=== PATIENT | female | born 1950 | race Caucasian/White ===

== ENCOUNTER 2020-09-25 07:34 | Outpatient (REF) | payer OTHER, SELFPAY ==
[2020-09-25 08:28] LABS: MANUAL DIFF FLAG NO
[2020-09-25 08:31] LABS: Basophils Percent Auto 0.5 % (0-2); Eosinophils Percent Auto 0.5 % (0-4); Hemoglobin 10.9 g/dl (12.0-16.0); Imm Gran Abs Auto 0.02 X10*3/uL (0.00-0.03); Imm Gran Pct Auto 0.4 % (0.0-0.4); Lymphocytes Absolute Auto 1.4 X10*3/uL (1.2-4.9); Lymphocytes Percent Auto 24.9 % (20-40); Mean Corpuscular HGB Conc 32.1 g/dl (31.0-35.0); Mean Corpuscular Hemoglobin 28.4 pg (27.0-33.0); Mean Corpuscular Volume 88.5 fL (80-98); Mean Platelet Volume 10.1 fL (9.4-12.3); Monocytes Absolute Auto 0.5 X10*3/uL (0.1-1.2); Monocytes Percent Auto 8.8 % (2-11); Neutrophils Absolute Auto 3.7 X10*3/uL (2.0-8.3); Neutrophils Percent Auto 64.9 % (45-73); Platelet Count 259 X10*3/uL (160-400); Red Blood Count 3.84 X10*6/uL (4.20-5.50); Red Cell Distribution Width 14.8 % (11.0-16.0); White Blood Count 5.7 X10*3/uL (4.8-10.8)
[2020-09-25 09:05] LABS: Glucose Urine UA NEG (NEG); Leukocyte Esterase Urine NEG (NEG); Nitrite Urine NEG (NEG); PH 5.5 (5.0-8.0); Specific Gravity - Urine 1.025 (1.005-1.025); Urine Blood NEG (NEG); Urine Ketones NEG (NEG); Urine Protein NEG (NEG-TRACE)
[2020-09-25 09:06] LABS: Appearance Urine CLEAR; Color Urine YELLOW
[2020-09-25 09:34] LABS: Alanine Aminotransferase 15 U/L (0-31); Albumin Level 3.6 g/dL (3.5-5.0); Alkaline Phosphatase 85 U/L (39-117); Anion Gap 14 (12-20); Aspartate Amino Transferase 20 U/L (5-31); Bilirubin Total 0.5 mg/dL (0.0-1.0); Blood Urea Nitrogen 31 mg/dL (9-16); Calcium 8.1 mg/dL (8.4-10.2); Carbon Dioxide 23 mmol/L (22-29); Chloride 108 mmol/L (96-108); Cholesterol 150 mg/dL; Estimated Glomerular Filt Rate > 60; Glucose Fasting 89 mg/dL (60-99); HDL Cholesterol 63 mg/dL; LDL Cholesterol Calculated 75 mg/dl; Potassium 4.6 mmol/l (3.3-5.1); Sodium 140 mmol/L (135-145); Total Protein 5.9 g/dL (6.5-8.0); Triglycerides 63 mg/dL
[2020-09-25 09:45] LABS: Vitamin D 25-OH Total 36.7 ng/mL (>30)
== END 2020-09-25 07:35 | disposition home or self-care (01) ==
LOC: HO.LAB 07:34
PROVIDERS: Visit Provider Internal Medicine
DX: Z00.00 Encounter for general adult medical examination without abnormal findings (principal); I10 Essential (primary) hypertension; R79.9 Abnormal finding of blood chemistry, unspecified; I89.0 Lymphedema, not elsewhere classified; E55.9 Vitamin D deficiency, unspecified; E66.01 Morbid (severe) obesity due to excess calories; N95.8 Other specified menopausal and perimenopausal disorders; I70.0 Atherosclerosis of aorta
CPT/HCPCS: 36415; 80053; 80061; 81003; 82306; 85025

== ENCOUNTER 2020-10-25 13:23 | Outpatient (REF) | payer OTHER, SELFPAY ==
[2020-10-25 16:57] LABS: Blood Urea Nitrogen 23 mg/dL (9-16); Estimated Glomerular Filt Rate > 60
== END 2020-10-25 13:24 | disposition home or self-care (01) ==
LOC: HO.HMGCLDS 13:23
PROVIDERS: PCP Internal Medicine; Visit Provider Internal Medicine
DX: R79.9 Abnormal finding of blood chemistry, unspecified (principal)
CPT/HCPCS: 36415; 82565; 84520

== ENCOUNTER → 2020-12-27 10:06 | Outpatient (BNVA) | payer OTHER, SELFPAY | PROVIDERS: PCP Internal Medicine; Visit Provider Internal Medicine Gastroenterology ==

== ENCOUNTER 2021-02-21 07:21 | Outpatient (REF) | payer OTHER, SELFPAY ==
--- NOTE | ~2021-02-21 | MM_ITS ---
EXAMINATION: MM SCREENING DIGITAL BREAST TOMOSYNTHESIS, BILATERAL CLINICAL INFORMATION: Screening. Asymptomatic. The lifetime risk of breast cancer based on the Tyrer-Cuzick Model is 4%. COMPARISON: Mammography: 12/15/2019, 12/11/2017, 06/10/2016 TECHNIQUE: Digital breast tomosynthesis is performed in both the craniocaudal and mediolateral oblique views along with computer-aided detection (CAD). Synthesized 2D images are generated from the tomosynthesis. Additional left CC view is provided. FINDINGS: There are scattered areas of fibroglandular density (ACR BI-RADS breast composition Category b). There are no significant masses, abnormal calcifications, or other abnormalities. Parenchymal pattern is similar to prior studies. No significant changes. The skin contours are smooth. MM/MM tomosynthesis screening BI IMPRESSION: No mammographic evidence of malignancy. ASSESSMENT: BI-RADS 1: Negative RECOMMENDATION: Routine annual mammography screening. This patient's information was entered into a reminder system with a target due date for their next mammogram.
== END 2021-02-21 07:22 | disposition home or self-care (01) ==
LOC: HO.MAMMO 07:21
PROVIDERS: PCP Internal Medicine; Visit Provider Internal Medicine
DX: Z12.31 Encounter for screening mammogram for malignant neoplasm of breast (principal)
CPT/HCPCS: 77063; 77067

== ENCOUNTER 2021-03-27 10:22 | Outpatient (REF) | payer OTHER, SELFPAY ==
[2021-03-27 12:02] LABS: Alanine Aminotransferase 14 U/L (0-31); Albumin Level 3.7 g/dL (3.5-5.0); Alkaline Phosphatase 93 U/L (39-117); Aspartate Amino Transferase 22 U/L (5-31); Bilirubin Direct 0.3 mg/dL (0.0-0.5); Bilirubin Total 0.5 mg/dL (0.0-1.0); Cholesterol 142 mg/dL; HDL Cholesterol 60 mg/dL; LDL Cholesterol Calculated 72 mg/dl; Total Protein 5.8 g/dL (6.5-8.0); Triglycerides 53 mg/dL
[2021-03-27 12:21] LABS: Reflex LDLD? No
== END 2021-03-27 10:23 | disposition home or self-care (01) ==
LOC: HO.LNP 10:22
PROVIDERS: Visit Provider Internal Medicine
DX: I70.0 Atherosclerosis of aorta (principal)
CPT/HCPCS: 80061; 80076

== ENCOUNTER 2021-05-03 10:37 | Outpatient (REF) | payer OTHER, SELFPAY ==
[2021-05-03 10:55] LABS: Blood Urea Nitrogen 37 mg/dL (9-16); Estimated Glomerular Filt Rate 42
== END 2021-05-03 10:38 | disposition home or self-care (01) ==
LOC: HO.LNP 10:37
PROVIDERS: Visit Provider Internal Medicine
DX: R79.9 Abnormal finding of blood chemistry, unspecified (principal)
CPT/HCPCS: 82565; 84520

== ENCOUNTER 2021-06-05 10:21 | Outpatient (REF) | payer OTHER, SELFPAY ==
[2021-06-05 11:45] LABS: Blood Urea Nitrogen 18 mg/dL (9-16); Estimated Glomerular Filt Rate > 60
== END 2021-06-05 10:22 | disposition home or self-care (01) ==
LOC: HO.LNP 10:21
PROVIDERS: Visit Provider Internal Medicine
DX: R79.9 Abnormal finding of blood chemistry, unspecified (principal)
CPT/HCPCS: 82565; 84520

== ENCOUNTER 2021-10-09 10:10 | Outpatient (REF) | payer OTHER, SELFPAY ==
[2021-10-09 10:14] LABS: MANUAL DIFF FLAG NO
[2021-10-09 10:27] LABS: Appearance Urine CLEAR; Color Urine YELLOW; Glucose Urine UA NEG (NEG); Leukocyte Esterase Urine NEG (NEG); Nitrite Urine NEG (NEG); PH 7.5 (5.0-8.0); Specific Gravity - Urine 1.015 (1.005-1.025); Urine Blood NEG (NEG); Urine Ketones NEG (NEG); Urine Protein NEG (NEG-TRACE)
[2021-10-09 10:42] LABS: Basophils Percent Auto 0.4 % (0-2); Eosinophils Absolute Auto 0.1 X10*3/uL (0.0-0.4); Eosinophils Percent Auto 1.1 % (0-4); Hematocrit 33.7 % (37.0-47.0); Hemoglobin 10.7 g/dl (12.0-16.0); Imm Gran Abs Auto 0.01 X10*3/uL (0.00-0.03); Imm Gran Pct Auto 0.2 % (0.0-0.4); Lymphocytes Absolute Auto 1.3 X10*3/uL (1.2-4.9); Mean Corpuscular HGB Conc 31.8 g/dl (31.0-35.0); Mean Corpuscular Hemoglobin 28.9 pg (27.0-33.0); Mean Corpuscular Volume 91.1 fL (80.0-98.0); Monocytes Absolute Auto 0.5 X10*3/uL (0.1-1.2); Monocytes Percent Auto 11.4 % (2-11); Neutrophils Absolute Auto 2.8 x10*3/uL (2.0-8.3); Neutrophils Percent Auto 58.9 % (45-73); Platelet Count 246 X10*3/uL (160-400); Red Cell Distribution Width 13.8 % (11.0-16.0); White Blood Count 4.8 X10*3/uL (4.8-10.8)
[2021-10-09 11:34] LABS: Alanine Aminotransferase 16 U/L (0-31); Albumin Level 3.5 g/dL (3.5-5.0); Alkaline Phosphatase 97 U/L (39-117); Anion Gap 12 (12-20); Aspartate Amino Transferase 25 U/L (5-31); Bilirubin Total 0.7 mg/dL (0.0-1.0); Blood Urea Nitrogen 20 mg/dL (9-16); Calcium 8.6 mg/dL (8.4-10.2); Carbon Dioxide 29 mmol/L (22-29); Chloride 107 mmol/L (96-108); Cholesterol 138 mg/dL; Estimated Glomerular Filt Rate 56; Glucose Fasting 83 mg/dL (60-99); HDL Cholesterol 53 mg/dL; LDL Cholesterol Calculated 74 mg/dl; Potassium 4.4 mmol/L (3.3-5.1); Sodium 144 mmol/L (135-145); Total Protein 5.8 g/dL (6.5-8.0); Triglycerides 56 mg/dL
[2021-10-09 11:58] LABS: Vitamin D 25-OH Total 37.3 ng/mL (>30)
== END 2021-10-09 10:11 | disposition home or self-care (01) ==
LOC: HO.LNP 10:10
PROVIDERS: Visit Provider Internal Medicine
DX: Z00.00 Encounter for general adult medical examination without abnormal findings (principal); I10 Essential (primary) hypertension; R79.9 Abnormal finding of blood chemistry, unspecified; I89.0 Lymphedema, not elsewhere classified; E55.9 Vitamin D deficiency, unspecified
CPT/HCPCS: 80053; 80061; 81003; 82306; 85025

== ENCOUNTER 2022-02-27 07:28 | Outpatient (REF) | payer BC, SELFPAY ==
--- NOTE | ~2022-02-27 | MM_ITS ---
EXAMINATION: MM SCREENING DIGITAL BREAST TOMOSYNTHESIS, BILATERAL CLINICAL INFORMATION: Screening. Asymptomatic. The lifetime risk of breast cancer based on the Tyrer-Cuzick Model is 4%. COMPARISON: Mammography: 02/21/2021, 12/15/2019, 12/11/2017, 06/10/2016 TECHNIQUE: Digital breast tomosynthesis is performed in both the craniocaudal and mediolateral oblique views along with computer-aided detection (CAD). Synthesized 2D images are generated from the tomosynthesis. FINDINGS: There are scattered areas of fibroglandular density (ACR BI-RADS breast composition Category b). There are no significant masses, abnormal calcifications, or other abnormalities. There are scattered bilateral minor asymmetries without developing density or architectural abnormality. The axilla and skin contours are unremarkable. MM/MM tomosynthesis screening BI IMPRESSION: No mammographic evidence of malignancy. ASSESSMENT: BI-RADS 2: Benign RECOMMENDATION: Routine annual mammography screening. This patient's information was entered into a reminder system with a target due date for their next mammogram.
== END 2022-02-27 07:29 | disposition home or self-care (01) ==
LOC: HO.MAMMO 07:28
PROVIDERS: PCP Internal Medicine; Visit Provider Internal Medicine
DX: Z12.31 Encounter for screening mammogram for malignant neoplasm of breast (principal)
CPT/HCPCS: 77063; 77067

== ENCOUNTER 2022-04-16 10:42 | Outpatient (REF) | payer BC, SELFPAY ==
[2022-04-16 12:27] LABS: Alanine Aminotransferase 15 U/L (0-31); Albumin Level 3.6 g/dL (3.5-5.0); Alkaline Phosphatase 87 U/L (39-117); Aspartate Amino Transferase 23 U/L (5-31); Bilirubin Direct 0.3 mg/dL (0.0-0.5); Bilirubin Total 0.5 mg/dL (0.0-1.0); Cholesterol 145 mg/dL; HDL Cholesterol 57 mg/dL; LDL Cholesterol Calculated 77 mg/dl; Total Protein 5.7 g/dL (6.5-8.0); Triglycerides 57 mg/dL
[2022-04-16 13:55] LABS: Reflex LDLD? No
== END 2022-04-16 10:43 | disposition home or self-care (01) ==
LOC: HO.LNP 10:42
PROVIDERS: PCP Internal Medicine; Visit Provider Internal Medicine
DX: I70.0 Atherosclerosis of aorta (principal)
CPT/HCPCS: 80061; 80076

== ENCOUNTER 2022-10-11 10:38 | Outpatient (REF) | payer BC, SELFPAY ==
[2022-10-11 10:42] LABS: MANUAL DIFF FLAG NO
[2022-10-11 10:46] LABS: Basophils Percent Auto 0.5 % (0-2); Eosinophils Absolute Auto 0.1 X10*3/uL (0.0-0.4); Eosinophils Percent Auto 1.1 % (0-4); Hematocrit 34.4 % (37.0-47.0); Hemoglobin 11.1 g/dl (12.0-16.0); Imm Gran Abs Auto 0.01 X10*3/uL (0.00-0.03); Imm Gran Pct Auto 0.2 % (0.0-0.4); Lymphocytes Absolute Auto 1.7 X10*3/uL (1.2-4.9); Lymphocytes Percent Auto 30.6 % (20-40); Mean Corpuscular HGB Conc 32.3 g/dl (31.0-35.0); Mean Corpuscular Hemoglobin 29.1 pg (27.0-33.0); Mean Corpuscular Volume 90.3 fL (80.0-98.0); Mean Platelet Volume 10.6 fL (9.4-12.3); Monocytes Absolute Auto 0.5 X10*3/uL (0.1-1.2); Monocytes Percent Auto 9.2 % (2-11); Neutrophils Absolute Auto 3.2 x10*3/uL (2.0-8.3); Neutrophils Percent Auto 58.4 % (45-73); Platelet Count 239 X10*3/uL (160-400); Red Blood Count 3.81 X10*6/uL (4.20-5.50); Red Cell Distribution Width 14.6 % (11.0-16.0); White Blood Count 5.5 X10*3/uL (4.8-10.8)
[2022-10-11 10:51] LABS: Appearance Urine Cloudy; Color Urine Yellow; Glucose Urine UA Negative (Negative); Leukocyte Esterase Urine Moderate (2+) (Negative); Nitrite Urine Negative (Negative); PH 5.5 (5.0-9.0); UMIC TRIGGER UA YES; Urine Blood Negative (Negative); Urine Ketones Negative (Negative); Urine Protein Trace mg/dL (Neg-Trace)
[2022-10-11 10:53] LABS: Bacteria Urine 4+ (None Seen); Hyaline Casts Urine 0-2 /LPF (0-2); Squamous Epithelial Cell Urine 0-2 /HPF (0-2); WBC Urine >50 /HPF (0-5)
[2022-10-11 11:16] LABS: Alanine Aminotransferase 15 U/L (0-31); Albumin Level 3.7 g/dL (3.5-5.0); Alkaline Phosphatase 93 U/L (39-117); Anion Gap 12 (12-20); Aspartate Amino Transferase 23 U/L (5-31); Bilirubin Total 0.5 mg/dL (0.0-1.0); Blood Urea Nitrogen 26 mg/dL (9-16); Calcium 8.9 mg/dL (8.4-10.2); Carbon Dioxide 24 mmol/L (22-29); Chloride 110 mmol/L (96-108); Cholesterol 145 mg/dL; Estimated Glomerular Filt Rate 52; Glucose Fasting 79 mg/dL (60-99); HDL Cholesterol 57 mg/dL; LDL Cholesterol Calculated 78 mg/dl; Potassium 4.1 mmol/L (3.3-5.1); Sodium 142 mmol/L (135-145); Total Protein 5.9 g/dL (6.5-8.0); Triglycerides 52 mg/dL
[2022-10-11 14:05] LABS: Vitamin D 25-OH Total 36.4 ng/mL (>30)
== END 2022-10-11 10:39 | disposition home or self-care (01) ==
LOC: HO.LNP 10:38
PROVIDERS: Visit Provider Internal Medicine
DX: Z00.00 Encounter for general adult medical examination without abnormal findings (principal); I10 Essential (primary) hypertension; R79.9 Abnormal finding of blood chemistry, unspecified; E55.9 Vitamin D deficiency, unspecified
CPT/HCPCS: 80053; 80061; 81001; 82306; 85025

== ENCOUNTER 2022-10-18 10:27 | Outpatient (REF) | payer BC, SELFPAY | END 2022-10-18 10:28 | disposition home or self-care (01) | LOC: HO.LNP 10:27 | PROVIDERS: Visit Provider Internal Medicine | DX: R31.9 Hematuria, unspecified (principal) | CPT/HCPCS: 87086; 87088; 87186 ==

== ENCOUNTER 2022-11-18 10:32 | Outpatient (REF) | payer BC, SELFPAY ==
[2022-11-18 11:55] LABS: Appearance Urine Clear; Color Urine Yellow; Glucose Urine UA Negative (Negative); Leukocyte Esterase Urine Trace (Negative); Nitrite Urine Negative (Negative); PH 5.5 (5.0-9.0); Specific Gravity - Urine 1.015 (1.005-1.025); UMIC TRIGGER UACC YES; Urine Blood Negative (Negative); Urine Ketones Negative (Negative); Urine Protein Negative (Neg-Trace)
[2022-11-18 11:59] LABS: Bacteria Urine None Seen (None Seen); Hyaline Casts Urine 0-2 /LPF (0-2); RBC Urine 0-2 /HPF (0-2); WBC Urine 0-5 /HPF (0-5)
== END 2022-11-18 10:33 | disposition home or self-care (01) ==
LOC: HO.LNP 10:32
PROVIDERS: Visit Provider Internal Medicine
DX: N39.0 Urinary tract infection, site not specified (principal)
CPT/HCPCS: 81001; 81003

== ENCOUNTER 2023-03-05 07:18 | Outpatient (REF) | payer BC, SELFPAY ==
--- NOTE | ~2023-03-05 | MM_ITS ---
EXAMINATION: MM SCREENING DIGITAL BREAST TOMOSYNTHESIS, BILATERAL CLINICAL INFORMATION: Screening. Asymptomatic. The lifetime risk of breast cancer based on the Tyrer-Cuzick Model is 4.1%. COMPARISON: Mammography: February 27, 2022 and studies dating back to March 02, 2014 TECHNIQUE: Digital breast tomosynthesis is performed in both the craniocaudal and mediolateral oblique views along with computer-aided detection (CAD). Synthesized 2D images are generated from the tomosynthesis. FINDINGS: There are scattered areas of fibroglandular density (ACR BI-RADS breast composition Category b). There are no significant masses, abnormal calcifications, or other abnormalities. MM/MM tomosynthesis screening BI IMPRESSION: No significant changes from prior exam. ASSESSMENT: BI-RADS 1: Negative RECOMMENDATION: Routine annual mammography screening. This patient's information was entered into a reminder system with a target due date for their next mammogram.
== END 2023-03-05 07:19 | disposition home or self-care (01) ==
LOC: HO.MAMMO 07:18
PROVIDERS: PCP Internal Medicine; Visit Provider Internal Medicine
DX: Z12.31 Encounter for screening mammogram for malignant neoplasm of breast (principal)
CPT/HCPCS: 77063; 77067

== ENCOUNTER 2023-03-11 10:48 | Outpatient (REF) | payer BC, SELFPAY ==
[2023-03-11 11:37] LABS: Alanine Aminotransferase 15 U/L (0-31); Albumin Level 3.3 g/dL (3.5-5.0); Alkaline Phosphatase 79 U/L (39-117); Aspartate Amino Transferase 21 U/L (5-31); Bilirubin Direct 0.2 mg/dL (0.0-0.5); Bilirubin Total 0.6 mg/dL (0.0-1.0); Cholesterol 123 mg/dL; HDL Cholesterol 52 mg/dL; LDL Cholesterol Calculated 62 mg/dl; Total Protein 5.5 g/dL (6.5-8.0); Triglycerides 49 mg/dL
[2023-03-11 12:51] LABS: Reflex LDLD? No
== END 2023-03-11 10:49 | disposition home or self-care (01) ==
LOC: HO.LNP 10:48
PROVIDERS: Visit Provider Internal Medicine
DX: I70.0 Atherosclerosis of aorta (principal)
CPT/HCPCS: 80061; 80076

== ENCOUNTER 2023-03-24 10:39 | Outpatient (REF) | payer BC, SELFPAY ==
[2023-03-24 11:23] LABS: Blood Urea Nitrogen 30 mg/dL (9-16); Estimated Glomerular Filt Rate 43
== END 2023-03-24 10:40 | disposition home or self-care (01) ==
LOC: HO.LNP 10:39
PROVIDERS: PCP Internal Medicine; Visit Provider Internal Medicine
DX: R79.9 Abnormal finding of blood chemistry, unspecified (principal)
CPT/HCPCS: 82565; 84520

== ENCOUNTER 2023-04-25 11:52 | Outpatient (REF) | payer BC, SELFPAY ==
[2023-04-25 12:53] LABS: Blood Urea Nitrogen 20 mg/dL (9-16); Estimated Glomerular Filt Rate 59
== END 2023-04-25 11:53 | disposition home or self-care (01) ==
LOC: HO.LNP 11:52
PROVIDERS: Visit Provider Internal Medicine
DX: R79.9 Abnormal finding of blood chemistry, unspecified (principal)
CPT/HCPCS: 82565; 84520

== ENCOUNTER 2023-10-16 11:00 | Outpatient (REF) | payer BC, SELFPAY | END 2023-10-16 11:01 | disposition home or self-care (01) | LOC: HO.LNP 11:00 | PROVIDERS: Visit Provider Internal Medicine | DX: Z00.00 Encounter for general adult medical examination without abnormal findings (principal); E55.9 Vitamin D deficiency, unspecified; I10 Essential (primary) hypertension | CPT/HCPCS: 80053; 80061; 81001; 82306; 85025 ==

== ENCOUNTER 2024-02-09 09:30 | Emergency (ER) | payer BC, SELFPAY ==
--- NOTE | ~2024-02-09 | CT_ITS ---
EXAMINATION: CT ABDOMEN AND PELVIS WITH CONTRAST CLINICAL INFORMATION: Abdominal distention, intestinal obstruction COMPARISON: CT scan of abdomen and pelvis on 05/15/2020 TECHNIQUE: Multidetector volumetric images were obtained from the superior aspect of the liver through the pubic symphysis following administration 85 mL of Omnipaque 350 intravenous contrast. Sagittal and coronal reformatted images were obtained on the technologist's workstation. Oral contrast: No This CT examination was performed using dose optimization techniques as appropriate, variously including the following: *Automated exposure control *Adjustment of mA and/or kV according to patient size (this includes techniques or standardized protocols for targeted exams where dose is matched to indication/reason for exam; i.e. extremities or head) *Use of iterative reconstruction technique DLP: 501 mGy-cm FINDINGS: LUNG BASES: Small focal subpleural atelectasis is seen in left lung base there is LIVER: No focal lesion is seen in the liver. GALLBLADDER AND BILIARY TREE: Gallbladder contains several large gravitating calcified stones. Common bile duct is not dilated. SPLEEN: The spleen is normal in size without focal lesion. PANCREAS: The pancreas appears unremarkable. ADRENAL GLANDS: Adrenal glands are normal in size without focal lesion bilaterally. KIDNEYS: Bilateral kidneys are normal in size without focal lesion. BOWELS: There is no abnormal dilatation of the large and small bowel loops. RETROPERITONEUM: No abnormally enlarged retroperitoneal lymph nodes, mass or hematoma could be seen. BLOOD VESSELS: Abdominal aorta is normal in size and smoothly patent. ABDOMINAL WALL: Small umbilical hernia containing mesenteric fat is seen. There is asymmetric atrophy of the right rectus abdominis muscle. Marked asymmetric right suprapubic lower abdominal rectus sheath diastases is seen, with protrusion of ascending colon into the subcutaneous abdominal wall. At upper L5 level, a rim enhancing right suprapubic subcutaneous abdominal wall fluid collection is seen, measuring 3.2 cm in AP diameter, 5.7 cm in width, 4.2 cm in vertical height, mean attenuation of 13 Hounsfield units (previously 7.9 x 16.4 x 14.0 cm). PERITONEUM: There was no ascites. There were no abdominal peritoneal inflammatory changes seen. No free peritoneal air was seen. No abnormally enlarged mesenteric lymph nodes are found. BONES: There are moderate T12-L1 levoscoliosis and L3-L4 dextroscoliosis, multilevel advanced degenerative lumbar disc disease. No fracture or dislocation. No focal bone lesion diagnostic of metastatic disease could be seen in the lumbar region. EXAMINATION: CT pelvis. FINDINGS: URINARY BLADDER: Urinary bladder fills normally with urine. BOWELS: There is no abnormal dilatation of the large and small bowel loops. GENITAL ORGANS: No adnexal mass lesion could be seen. The uterus is anteverted, containing anterior upper uterine body calcifications. LYMPH NODES: No abnormally enlarged iliac or inguinal lymph nodes are seen. PERITONEUM: No inflammatory changes, ascites or free peritoneal air are found in the pelvis. BONES: Right total hip arthroplasty prostheses are present. No fracture or dislocation. No focal bone lesion diagnostic of metastatic disease could be seen in the pelvis. CT/CT abdomen pelvis w IV con IMPRESSION: 1. Cyst and marked Cholelithiasis. 2. Unchanged Small umbilical hernia containing mesenteric fat. 3. Interval development of Marked asymmetric right suprapubic lower abdominal rectus sheath diastases, with protrusion of ascending colon into the subcutaneous abdominal wall. 4. Interval decrease in size and density of right suprapubic subcutaneous abdominal wall fluid collection,, compatible with seroma or abscess. 5. Unchanged moderate thoracolumbar scoliosis and advanced degenerative lumbar disc disease. 6. Unchanged status post Right total hip arthroplasty. Fleischner guidelines were followed.
[2024-02-09 09:32] VITALS: BP 173/84; PULSE 96; RESP 16; TEMP 36.1; O2SAT 98; BMI 35.3
[2024-02-09 10:00] LABS: MANUAL DIFF FLAG NO
[2024-02-09 10:02] LABS: Basophils Percent Auto 0.3 % (0-2); Eosinophils Percent Auto 0.3 % (0-4); Hematocrit 35.3 % (37.0-47.0); Hemoglobin 11.9 g/dl (12.0-16.0); Imm Gran Abs Auto 0.01 X10*3/uL (0.00-0.03); Imm Gran Pct Auto 0.2 % (0.0-0.4); Lymphocytes Absolute Auto 1.4 X10*3/uL (1.2-4.9); Lymphocytes Percent Auto 22.4 % (20-40); Mean Corpuscular HGB Conc 33.7 g/dl (31.0-35.0); Mean Corpuscular Hemoglobin 30.1 pg (27.0-33.0); Mean Corpuscular Volume 89.1 fL (80.0-98.0); Mean Platelet Volume 9.5 fL (9.4-12.3); Monocytes Absolute Auto 0.5 X10*3/uL (0.1-1.2); Neutrophils Absolute Auto 4.2 x10*3/uL (2.0-8.3); Neutrophils Percent Auto 68.8 % (45-73); Platelet Count 239 X10*3/uL (160-400); Red Blood Count 3.96 X10*6/uL (4.20-5.50); Red Cell Distribution Width 14.7 % (11.0-16.0); White Blood Count 6.1 X10*3/uL (4.8-10.8)
[2024-02-09 10:27] LABS: Alanine Aminotransferase 17 U/L (0-31); Albumin Level 3.5 g/dL (3.5-5.0); Alkaline Phosphatase 78 U/L (39-117); Anion Gap 13 (12-20); Aspartate Amino Transferase 23 U/L (5-31); Bilirubin Total 0.7 mg/dL (0.0-1.0); Blood Urea Nitrogen 17 mg/dL (9-16); Calcium 8.9 mg/dL (8.4-10.2); Carbon Dioxide 22 mmol/L (22-29); Chloride 111 mmol/L (96-108); Creatinine Clr Calc Pharmacy 62.1; Estimated Glomerular Filt Rate > 60; Glucose Random 89 mg/dL (60-115); Potassium 3.8 mmol/L (3.3-5.1); Sodium 142 mmol/L (135-145); Total Protein 6.2 g/dL (6.5-8.0)
[2024-02-09 11:09] VITALS: BP 147/67; PULSE 68; RESP 16; TEMP 36.8; O2SAT 98
--- NOTE | 2024-02-09 11:18 | ED_ITS ---
HPI - Abdominal Pain General Chief Complaint: Abdominal Pain Stated Complaint: Swollen r side abd Time Seen by Provider: 02/09/24 11:04 Source: patient Mode of arrival: ambulatory Limitations: no limitations History of Present Illness HPI narrative: 73 years old female presented to emergency department with a chief complaint of right lower quadrant abdominal pain and abdominal mass worse for the last 2 days. Denies any fever chills vomiting and diarrhea. MD elicited complaint: abdominal pain Pertinent past history: none Onset (ago): day(s) (2) Pain Consistency: constant Location: RLQ Severity: moderate Quality: cramping Radiation: none Migration to: no migration Associated symptoms: denies other symptoms Related Data Home Medications ?Medication ?Instructions ?Recorded ?Confirmed beclomethasone dipropionate 40 1 inh inhalation BID 12/27/20 12/27/20 mcg/actuation HFA breath activated aerosol (Qvar RediHaler) diltiazem HCl 240 mg 240 mg PO DAILY 12/27/20 12/27/20 capsule,extended release 24 hr (Cartia XT) irbesartan 300 1 tab PO DAILY 12/27/20 12/27/20 mg-hydrochlorothiazide 12.5 mg tablet omeprazole 20 mg capsule,delayed 20 mg PO DAILY 12/27/20 12/27/20 release Allergies Allergy/AdvReac Type Severity Reaction Status Date / Time adhesive tape [ADHESIVE TAPE] Allergy Severe Severe Verified 02/09/24 09:36 Itching Sulfa (Sulfonamide Allergy Severe Anaphylaxis Verified 02/09/24 09:36 Antibiotics) [SULFA (SULFONAMIDE ANTIBIOTICS)] erythromycin base AdvReac Intermediate Vomiting Verified 02/09/24 09:36 Review of Systems Constitutional: Reports no additional constitutional complaints Eyes: Reports no additional eye complaints Gastrointestinal: Reports no additional gastrointestinal complaints [facility] Past Medical History Attestation statement: The following information was validated with the patient. Medical History Asthma Screening for colon cancer Morbid obesity due to excess calories HTN (hypertension) Skin cancer (melanoma) Surgical History H/O colonoscopy History of right hip replacement H/O wrist surgery H/O: History of kidney surgery H/O hernia repair Family History Family History Mother No problems noted. Social History Social History Household Members: Spouse Alcohol intake: never Physical Exam ED Vital Signs: Vital Signs - 24 hr 02/09/24 09:32 02/09/24 11:09 Temperature 97 F 98.3 F Pulse Rate 96 68 Respiratory Rate 16 16 Blood Pressure 173/84 H 147/67 H Pulse Oximetry 98 98 Oxygen Delivery Method Room Air Room Air BMI result Body Mass Index 35.3 Const General: cooperative Nutritional Appearance: average body habitus Orientation/consciousness: patient oriented x3 Limitations: no limitations HENMT Head: Yes normal to inspection General nose exam: Normal external nose present Face and sinus: Yes normal facial exam Mouth: Normal oral and palatal mucosa present Throat: Yes posterior oropharynx normal Neck Neck: Yes normal visual inspection Chest Chest palpation & inspection: normal inspection of the chest Resp Effort & Inspection: normal respiratory effort Auscultation: clear to auscultation bilaterally Cardio Jugular venous distension: no JVD Rate: regular rate GI Inspection: Yes normal to inspection Palpation (GI): Soft to palpation and Tenderness to palpation present (GI) (rt lower quadrant) Percussion: Yes normal to percussion Skin General skin exam: no rashes or lesions noted Lesions: no lesions Trauma: no lacerations or abrasions Neuro General: patient oriented x3 Course Reevaluation(s) Reevaluation #1: I REVIEWED THE CASE WITH DR. ZULUAGA; I REVIEWED THE CT SCAN WELL; PER DR. ZULUAGA THE PATIENT CAN BE DISCHARGED HOME HE WILL SEE THE PATIENT IN THE OFFICE IN AM AT 9 PATIENT IS COMFORTABLE WITH THE PLAN OF CARE Time: 15:09 Medical Decision Making Medical Decision Making [facility] Narrative: Patient presented with abdominal pain right lower quadrant mass, we get labs CT and reassessed Differential Diagnosis Differential Diagnoses: The differential diagnosis associated with the presentation includes Diverticulitis/colitis/colon cancer Admission/Observation Consideration of admission/observation: Escalation of care including admission/observation considered Consult Healthcare Provider Management of the patient was discussed with: Rubber Goods Tester dR ZULUAGA Lab Data MDM Lab Attestation statement: I reviewed the patient's lab results. 02/09/24 09:48 02/09/24 09:48 Labs: Lab Results 02/09/24 Range/Units 09:48 WBC 6.1 (4.8-10.8) X10*3/uL RBC 3.96 L (4.20-5.50) X10*6/uL Hgb 11.9 L (12.0-16.0) g/dl Hct 35.3 L (37.0-47.0) % MCV 89.1 (80.0-98.0) fL MCH 30.1 (27.0-33.0) pg MCHC 33.7 (31.0-35.0) g/dl RDW 14.7 (11.0-16.0) % Plt Count 239 (160-400) X10*3/uL MPV 9.5 (9.4-12.3) fL Immature Gran % (Auto) 0.2 (0.0-0.4) % Neut % (Auto) 68.8 (45-73) % Lymph % (Auto) 22.4 (20-40) % [place] % (Auto) 8.0 (2-11) % Eos % (Auto) 0.3 (0-4) % Baso % (Auto) 0.3 (0-2) % Lymph # (Auto) 1.4 (1.2-4.9) X10*3/uL [place] # (Auto) 0.5 (0.1-1.2) X10*3/uL Eos # (Auto) 0.0 (0.0-0.4) X10*3/uL Baso # (Auto) 0.0 (0.0-0.2) X10*3/uL Abs Immat Gran (auto) 0.01 (0.00-0.03) X10*3/uL Absolute Neuts (auto) 4.2 (2.0-8.3) x10*3/uL Absolute Nucleated RBC 0.000 (0.0-0.012) X10*3/uL Nucleated RBC % (auto) 0.0 (0.0-0.2) /100WBC Sodium 142 (135-145) mmol/L Potassium 3.8 (3.3-5.1) mmol/L Chloride 111 H (96-108) mmol/L Carbon Dioxide 22 (22-29) mmol/L Anion Gap 13 (12-20) BUN 17 H (9-16) mg/dL Creatinine 0.84 (0.5-1.4) mg/dL Estim Creat Clear Calc 62.1 Estimated GFR > 60 Random Glucose 89 (60-115) mg/dL Calcium 8.9 (8.4-10.2) mg/dL Total Bilirubin 0.7 (0.0-1.0) mg/dL AST 23 (5-31) U/L ALT 17 (0-31) U/L Alkaline Phosphatase 78 (39-117) U/L Total Protein 6.2 L (6.5-8.0) g/dL Albumin 3.5 (3.5-5.0) g/dL Independent Interpretation I performed an independent interpretation of an: CT Scan Interpretation: SEROMA External Record Review External record reviewed: Inpatient record Discharge Plan Discharge Clinical Impression: Abdominal pain in female patient Patient Disposition: Home, Self-Care Instructions: Abdominal Pain (ED) Additional Instructions: FOLLOW-UP WITH DR. ZULUAGA HE WILL SEE YOU TOMORROW 09:00 O'CLOCK IN THE OFFICE. YOUR CT SCAN SHOWED NO BOWEL OBSTRUCTION, NO ACUTE PATHOLOGY YOU DO HAVE A SEROMA (CAVITY WITH FLUIDS) Prescriptions: No Action Qvar RediHaler 40 mcg/actuation HFA aerosol breath activated 1 inh inhalation BID irbesartan-hydrochlorothiazide 300-12.5 mg tablet 1 tab PO DAILY diltiazem HCl [Cartia XT] 240 mg capsule,extended release 24hr 240 mg PO DAILY omeprazole 20 mg capsule,delayed release(DR/EC) 20 mg PO DAILY Referrals: Jatinder Zuluaga MD [Physician] - Print Language: Polish
[2024-02-09 15:16] VITALS: BP 137/66; PULSE 71; RESP 16; TEMP 36.6; O2SAT 98
== END 2024-02-09 15:17 | disposition home or self-care (01) ==
PROVIDERS: Emergency Provider Emergency Medicine; PCP Internal Medicine
DX: R10.31 Right lower quadrant pain (principal); Z79.899 Other long term (current) drug therapy
CPT/HCPCS: 36415; 74177; 80053; 85025; 99284

== ENCOUNTER 2024-02-10 08:43 | Outpatient (AMB) | payer BC, SELFPAY ==
--- NOTE | 2024-02-10 08:47 | MHC.OFFVIS ---
Vital Signs 02/10/24 08:53 Height 5 ft 2 in Weight 187 lb BMI 34.2 BP 138/75 Blood Pressure Location Rt brachial Position Sitting Pulse 92 Intake Visit Reasons: Swollen r side abd Intake Note: Patient referred after ER visit on 02-09-24. Patient c/o: abd pain, feels swelling lump on Rt lower abd. Program Services Assistant Required: No Accompanied by: Self / Same As Patient Allergies adhesive tape [ADHESIVE TAPE] Allergy (Severe, Verified 02/10/24 08:56) Severe Itching Sulfa (Sulfonamide Antibiotics) [SULFA (SULFONAMIDE ANTIBIOTICS)] Allergy (Severe, Verified 02/10/24 08:56) Anaphylaxis erythromycin base Adverse Reaction (Intermediate, Verified 02/10/24 08:56) Vomiting HPI Comments Details: Patient has had right lower quadrant abdominal wall hernia repair x2. This was done on relative recent past. She now presents with a seroma at the incision site. She has had this several months time. His increasing in size, become more symptomatic. She would like to have it addressed/drained. Chart was reviewed and patient evaluate. Patient was seen in the emergency department yesterday and workup including CT scan demonstrates the above-mentioned seroma COUNT INCLUDES THE [facility] Medical History Asthma Screening for colon cancer Morbid obesity due to excess calories HTN (hypertension) Skin cancer (melanoma) Surgical History H/O colonoscopy History of right hip replacement H/O wrist surgery H/O: History of kidney surgery H/O hernia repair Family History Mother No problems noted. Social History Household Members: Spouse Alcohol intake: never Physical Exam Vital Signs: Last Vital Signs Pulse 92 02/10/24 08:53 BP 138/75 02/10/24 08:53 BMI result Body Mass Index 34.2 GI Other: Abdomen corpulent, soft. Patient has a right lower quadrant scar and a moderately sized seroma. Office Procedures FNA Biopsy FNA Biopsy Details: Risks, benefits, alternatives of aspiration of abdominal wall seroma reviewed the patient and included but not limited to bleeding, infection, recurrence, numbness, pain, scarring the patient was to proceed. All questions answered. After appropriate positioning, patient underwent Betadine prep and uneventful aspiration of approximately 35 cc of serous fluid. Dressing applied. Well tolerated. FNA Biopsy 1: [id number] Biopsy, 1st lesion w/o image All charges added?: Procedure code (CPT) selection complete Assessment & Plan Assessment & Plan (1) Seroma due to trauma: Code(s): T79.2XXA - Traumatic secondary and recurrent hemorrhage and seroma, initial encounter Category: Surgical Plan Patient has been given local instructions including ice to the area, avoid strenuous activities, and we will otherwise follow-up p.r.n.. All questions answered. Orders: Orders Biopsy - Fine needle aspiration Today T79.2XXA - Traumatic secondary and recurrent hemorrhage and seroma, initial encounter Coding Level of Care Code New Pt Level 5 (08308) Diagnoses Seroma due to trauma T79.2XXA CPT Codes FNA Biopsy - FNA Biopsy 1: 76429-NIM Biopsy, 1st lesion w/o image ([id number])
[2024-02-10 08:53] VITALS: BP 138/75; PULSE 92; BMI 34.2
== END 2024-02-10 08:58 | disposition home or self-care (01) ==
PROVIDERS: PCP Internal Medicine; Visit Provider Surgery
DX: L76.32 Postprocedural hematoma of skin and subcutaneous tissue following other procedure (principal)
CPT/HCPCS: 10160; 99204

== ENCOUNTER → 2024-02-10 08:43 | Outpatient (BNVA) | payer BC, SELFPAY | PROVIDERS: PCP Internal Medicine; Visit Provider Surgery | DX: T79.2XXA Traumatic secondary and recurrent hemorrhage and seroma, initial encounter (principal) | CPT/HCPCS: 10160 ==

== ENCOUNTER 2024-03-10 07:21 | Outpatient (REF) | payer BC, SELFPAY ==
--- NOTE | ~2024-03-10 | MM_ITS ---
EXAMINATION: MM SCREENING DIGITAL BREAST TOMOSYNTHESIS, BILATERAL CLINICAL INFORMATION: Screening. Asymptomatic. As per technologist note, 100 pound weight loss over last year. COMPARISON: Mammography: 03/05/2023, 02/27/2022, 02/21/2021, 12/15/2019, 12/11/2017, 06/10/2016 TECHNIQUE: Digital breast tomosynthesis is performed in both the craniocaudal and mediolateral oblique views along with computer-aided detection (CAD). Synthesized 2D images are generated from the tomosynthesis. FINDINGS: There are scattered areas of fibroglandular density (ACR BI-RADS breast composition Category b). Scattered minor parenchymal asymmetries in both breasts are stable and unchanged. There are rare scattered benign calcifications. There are no suspicious masses, suspicious grouped calcifications, or areas of architectural distortion in either breast. The parenchymal pattern is stable from prior exams. No axillary or skin abnormalities. MM/MM tomosynthesis screening BI IMPRESSION: No mammographic evidence of malignancy. No significant interval change. ASSESSMENT: BI-RADS BI-RADS 2 - Benign Findings RECOMMENDATION: Routine annual mammography screening. 1 year F/U This examination should not preclude the clinical evaluation of a suspicious palpable abnormality. This patient's information was entered into a reminder system with a target due date for their next mammogram.
== END 2024-03-10 07:22 | disposition home or self-care (01) ==
LOC: HO.MAMMO 07:21
PROVIDERS: PCP Internal Medicine; Visit Provider Internal Medicine
DX: Z12.31 Encounter for screening mammogram for malignant neoplasm of breast (principal)
CPT/HCPCS: 77063; 77067

== ENCOUNTER → 2024-03-10 07:30 | Outpatient (BNV) | payer BC, SELFPAY | PROVIDERS: PCP Internal Medicine; Visit Provider Radiology Diagnostic Radiology | DX: Z12.31 Encounter for screening mammogram for malignant neoplasm of breast (principal) | CPT/HCPCS: 77063; 77067 ==

== ENCOUNTER 2024-04-19 11:23 | Outpatient (REF) | payer BC, SELFPAY ==
[2024-04-19 12:10] LABS: Alanine Aminotransferase 17 U/L (0-31); Albumin Level 3.5 g/dL (3.5-5.0); Alkaline Phosphatase 84 U/L (39-117); Aspartate Amino Transferase 25 U/L (5-31); Bilirubin Direct 0.2 mg/dL (0.0-0.5); Bilirubin Total 0.5 mg/dL (0.0-1.0); Cholesterol 125 mg/dL (<200); HDL Cholesterol 55 mg/dL (>40); LDL Cholesterol Calculated 60 mg/dL (<100); Total Protein 5.9 g/dL (6.5-8.0); Triglycerides 54 mg/dL (<150)
[2024-04-19 14:20] LABS: Reflex LDLD? No
== END 2024-04-19 11:24 | disposition home or self-care (01) ==
LOC: HO.LNP 11:23
PROVIDERS: Visit Provider Internal Medicine
DX: I70.0 Atherosclerosis of aorta (principal)
CPT/HCPCS: 80061; 80076

== ENCOUNTER 2024-10-18 11:48 | Outpatient (REF) | payer BC, SELFPAY ==
[2024-10-18 11:53] LABS: MANUAL DIFF FLAG NO
[2024-10-18 12:03] LABS: Basophils Percent Auto 0.5 % (0-2); Eosinophils Absolute Auto 0.1 X10*3/uL (0.0-0.4); Hematocrit 36.8 % (37.0-47.0); Hemoglobin 11.9 g/dl (12.0-16.0); Imm Gran Abs Auto 0.03 X10*3/uL (0.00-0.03); Imm Gran Pct Auto 0.5 % (0.0-0.4); Lymphocytes Absolute Auto 2.1 X10*3/uL (1.2-4.9); Lymphocytes Percent Auto 34.5 % (20-40); Mean Corpuscular HGB Conc 32.3 g/dl (31.0-35.0); Mean Corpuscular Hemoglobin 30.3 pg (27.0-33.0); Mean Corpuscular Volume 93.6 fL (80.0-98.0); Mean Platelet Volume 10.3 fL (9.4-12.3); Monocytes Absolute Auto 0.6 X10*3/uL (0.1-1.2); Monocytes Percent Auto 10.8 % (2-11); Neutrophils Absolute Auto 3.1 x10*3/uL (2.0-8.3); Neutrophils Percent Auto 52.7 % (45-73); Platelet Count 252 X10*3/uL (160-400); Red Blood Count 3.93 X10*6/uL (4.20-5.50); Red Cell Distribution Width 14.4 % (11.0-16.0)
[2024-10-18 12:06] LABS: Appearance Urine Clear; Color Urine Yellow; Glucose Urine UA Negative (Negative); Leukocyte Esterase Urine Negative (Negative); Nitrite Urine Negative (Negative); Urine Blood Negative (Negative); Urine Ketones Negative (Negative); Urine Protein Negative (Neg-Trace)
[2024-10-18 12:22] LABS: Bacteria Urine None Seen (None Seen); Hyaline Casts Urine 0-2 /LPF (0-2); RBC Urine 0-2 /HPF (0-2); WBC Urine 0-5 /HPF (0-5)
[2024-10-18 13:18] LABS: Alanine Aminotransferase 22 U/L (0-31); Albumin Level 3.6 g/dL (3.5-5.0); Alkaline Phosphatase 88 U/L (39-117); Anion Gap 9 (12-20); Aspartate Amino Transferase 34 U/L (5-31); Bilirubin Total 0.5 mg/dL (0.0-1.0); Blood Urea Nitrogen 25 mg/dL (9-16); Carbon Dioxide 25 mmol/L (22-29); Chloride 114 mmol/L (96-108); Cholesterol 139 mg/dL (<200); Estimated Glomerular Filt Rate > 60; Glucose Fasting 86 mg/dL (60-99); HDL Cholesterol 58 mg/dL (>40); LDL Cholesterol Calculated 69 mg/dL (<100); Potassium 3.9 mmol/L (3.3-5.1); Sodium 144 mmol/L (135-145); Total Protein 6.1 g/dL (6.5-8.0); Triglycerides 61 mg/dL (<150); Vitamin D 25-OH Total 47.7 ng/mL (>30)
== END 2024-10-18 11:49 | disposition home or self-care (01) ==
LOC: HO.LNP 11:48
PROVIDERS: Visit Provider Internal Medicine
DX: Z00.00 Encounter for general adult medical examination without abnormal findings (principal); I10 Essential (primary) hypertension; E55.9 Vitamin D deficiency, unspecified
CPT/HCPCS: 80053; 80061; 81001; 82306; 85025

== ENCOUNTER 2024-11-10 11:33 | Outpatient (REF) | payer BC, SELFPAY ==
--- NOTE | ~2024-11-10 | CT_ITS ---
EXAMINATION: CT ABDOMEN AND PELVIS WITH CONTRAST CLINICAL INFORMATION: Intra-abdominal and pelvic swelling mass/lump COMPARISON: CT dated February 09, 2024. TECHNIQUE: Multidetector volumetric images were obtained from the superior aspect of the liver through the pubic symphysis following administration 72 mL of Omnipaque 350 intravenous contrast. Sagittal and coronal reformatted images were obtained on the technologist's workstation. No reported immediate complications. Oral contrast: No This CT examination was performed using dose optimization techniques as appropriate, variously including the following: *Automated exposure control *Adjustment of mA and/or kV according to patient size (this includes techniques or standardized protocols for targeted exams where dose is matched to indication/reason for exam; i.e. extremities or head) *Use of iterative reconstruction technique DLP: 863 mGy centimeter. FINDINGS: LUNG BASES: Linear attenuation in the lung bases. LIVER, GALLBLADDER, AND BILIARY TREE: 13 cm. No focal mass. The portal veins, hepatic veins and intrahepatic portion of the IVC are patent. Subcentimeter hypodensity in the right hepatic lobe. Layering cholelithiasis without pericholecystic fluid collection or gallbladder wall thickening. No intrahepatic or extrahepatic biliary ductal dilatation. PANCREAS: No focal mass. No peripancreatic fluid collection. No main pancreatic ductal dilatation. SPLEEN: 7 cm. No focal lesion. ADRENAL GLANDS: No nodular lesion. KIDNEYS AND URETERS: Asymmetric smaller left kidney when compared with its contralateral side. No gross hydronephrosis or renal mass. BLADDER: Collapsed.. GASTROINTESTINAL TRACT: Hiatal hernia. Large diverticulum, duodenum. No intestinal obstruction pattern. No pneumatosis intestinalis. Appendix appears normal. No ascites. No pneumoperitoneum. ABDOMINAL WALL: There is a well-defined, thin wall 3 x 5 x 4 cm fluid density abnormality with a tiny punctate calcification centered right anterior lower abdominal wall. There is thickening of the skin in the suprapubic abdomen. There is edema pattern in the fat planes. Small fat-containing umbilical/periumbilical hernia. LYMPH NODES: No gross lymphadenopathy. VASCULAR: No aneurysm or dissection abdominal aorta. Calcified plaques throughout the abdominal aorta wall and iliac arteries. Calcified plaques in the mitral valve. PELVIC VISCERA: Punctate calcifications in the uterus. OSSEOUS STRUCTURES: Multilevel thoracolumbar spondylosis more conspicuous at L5-S1. Grade 1 anterolisthesis L4-5. Grade 1 retrolisthesis L2-3 and L3-4 levels. Incomplete ankylosis L1 to. Dextroconvex rotoscoliosis apex at L3-4 and to a levoconvex scoliosis apex at T12-L1. Status post total right hip arthroplasty prosthesis resulting in beam hardening artifact. Subchondral cyst formation and joint space narrowing with sclerosis along the articular surface in the left coxofemoral joint.. CT/CT abdomen pelvis w IV con IMPRESSION: 3 x 5 x 4 cm cystic lesion right lower abdominal wall. Consider seroma among other differential diagnosis. Cholelithiasis. Smaller/atrophic left kidney. Diverticula, duodenum. Scoliosis and multilevel spondylosis. Osteoarthrosis, left hip. Fleischner guidelines were followed. Electronically signed by: Kyree Bentley MD 11/10/2024 03:38 PM HOLLEY ASHLEY
--- OUTSIDE RECORDS SUMMARY | 2024-11-10 14:00 | XMS_ITS ---
Author Organization Christopher Hogan MD Address [address] [place] [phone] Care Team Providers Care Field Map Technician Name Role Phone Christopher Hogan Primary Care Provider Results Component Value Reference Range Notes Complete Blood Count Auto Di ff Reviewed date:10/18/2024 06:05:04 PM Interpretation: Performing Lab:[facility], [address] [place] [phone] Notes/Report: White Blood Count 6.0 4.8-10.8 X10*3/uL Red Blood Count 3.93 4.20-5.50 X10*6/uL Hemoglobin 11.9 12.0-16.0 g/dl Hematocrit 36.8 37.0-47.0 % Mean Corpuscular Volume 93.6 80.0-98.0 fL Mean Corpuscular Hemoglobin 30.3 27.0-33.0 pg Mean Corpuscular HGB Conc 32.3 31.0-35.0 g/dl Red Cell Distribution Width 14.4 11.0-16.0 % Platelet Count 252 160-400 X10*3/uL Mean Platelet Volume 10.3 9.4-12.3 fL Neutrophils Percent Auto 52.7 45-73 % Imm Gran Pct Auto 0.5 0.0-0.4 % Lymphocytes Percent Auto 34.5 20-40 % Monocytes Percent Auto 10.8 2-11 % Eosinophils Percent Auto 1.0 0-4 % Basophils Percent Auto 0.5 0-2 % NRBC Pct Auto 0.0 0.0-0.2 /100WBC Neutrophils Absolute Auto 3.1 2.0-8.3 x10*3/u L Imm Gran Abs Auto 0.03 0.00-0.03 X10*3/uL Lymphocytes Absolute Auto 2.1 1.2-4.9 X10*3/u L Monocytes Absolute Auto 0.6 0.1-1.2 X10*3/uL Eosinophils Absolute Auto 0.1 0.0-0.4 X10*3/u L Basophils Absolute Auto 0.0 0.0-0.2 X10*3/uL NRBC Abs Auto 0.000 0.0-0.012 X10*3/uL Comprehensive [facility]. Panel Fa st Reviewed date:10/18/2024 05:51:27 PM Interpretation: Performing Lab:[facility], [address] [place] [phone] Notes/Report: Sodium 144 135-145 mmol/L Potassium 3.9 3.3-5.1 mmol/L Chloride 114 96-108 mmol/L Carbon Dioxide 25 22-29 mmol/L Anion Gap 9 12-20 Blood Urea Nitrogen 25 9-16 mg/dL Creatinine 0.89 0.5-1.4 mg/dL Estimated Glomerular Filt Rate > 60 Chronic Kidney Disease: Estimated GFR < 60 mL/min/1.73m2 Severe Kidney Disease: Estimated GFR < 15 mL/min/1.73m2 Glucose Fasting 86 60-99 mg/dL Calcium 9.0 8.4-10.2 mg/dL Bilirubin Total 0.5 0.0-1.0 mg/dL Aspartate Amino Transferase 34 5-31 U/L Alanine Aminotransferase 22 0-31 U/L Total Protein 6.1 6.5-8.0 g/dL Albumin Level 3.6 3.5-5.0 g/dL Alkaline Phosphatase 88 39-117 U/L Lipid Panel Reviewed date:10/18/2024 05:48:30 PM Interpretation: Performing Lab:[facility], [address] [place] [phone] Notes/Report: Triglycerides 61 <150 mg/dL Desirable Triglyceride: less than 150 mg/dL Borderline High Triglyceride 150-199 mg/dL High Triglyceride: 200-499 mg/dL Very High Triglyceride: greater than or equal to 5OO mg/dL Cholesterol 139 <200 mg/dL Desirable Cholesterol: less than 200 mg/dL Borderline High Cholesterol: 200-239 mg/dL High Cholesterol: greater than 239 mg/dL LDL Cholesterol Calculated 69 <100 mg/dL Desirable LDL: less than 100 mg/dL Near Optimal/Above Optimal LDL: 110-129 mg/dL Borderline High LDL: 130-159 mg/dL High LDL: 160-189 mg/dL Very High LDL: greater than or equal to 190 mg/dL HDL Cholesterol 58 >40 mg/dL Desirable HDL: greater than 40 mg/dL Note: This HDL assay may give artificially low results in patients with liver disease. Vitamin D 25-OH Total Reviewed date:10/18/2024 05:52:08 PM Interpretation: Performing Lab:[facility], [address] [place] [phone] Notes/Report: Vitamin D 25-OH Total 47.7 >30 ng/mL Health Based Reference Values* < 20 ng/mL Deficient 20-30 ng/mL Insufficient > 30 ng/mL Sufficient *Dione BELTRE. N Engl J Med. 2007;357:266-280 Care must be taken in interpreting Vitamin D results from different laboratories and methodologies. Published data demonstrated that results from patients undergoing hemodialysis may show a negative bias when tested with various automated 25-OH vitamin D assays when compared to LC-MS/MS. When testing samples from patients whose predominant form of Vitamin D is Vitamin D2, such as patients receiving Vitamin D2 supplementation, results that are subtherapeutic should be confirmed with another method such as LC-MS/MS. UA ClnCatch+Micro w/rflx Cul t Reviewed date:10/18/2024 06:06:39 PM Interpretation: Performing Lab:[facility], [address] [place] [phone] Notes/Report: Urine, Clean Catch Color Urine Yellow Appearance Urine Clear PH 6.0 5.0-9.0 Glucose Urine UA Negative Negative mg/dL Urine Blood Negative Negative Specific [place] - Urine 1.020 1.005-1.025 Urine Protein Negative Neg-Trace mg/dL Urine Ketones Negative Negative mg/dL Nitrite Urine Negative Negative Leukocyte Esterase Urine Negative Negative RBC Urine 0-2 0-2 /HPF WBC Urine 0-5 0-5 /HPF Squamous Epithelial Cell Urine 3-5 0-2 /HPF Bacteria Urine None Seen None Seen Hyaline Casts Urine 0-2 0-2 /LPF REASON FOR VISIT yearly fasting labs Encounters Encounter Location Date Provider Diagnosis Christopher Hogan MD [address] [place] [phone] 10/18/2024 Christopher Hogan Blood tests for routine general physical examination Z00.00 ; Essential hypertension I10 and Vitamin D deficiency E55.9 Assessments Encounter Date Diagnosis (ICD Code) Assessment Notes Treatment Notes Treatment Clinical Notes Section Notes 10/18/2024 Blood tests for routine general physical examination (ICD-10 - Z00.00) 10/18/2024 Essential hypertension (ICD-10 - I10) 10/18/2024 Vitamin D deficiency (ICD-10 - E55.9) Plan Of Treatment Next Appt Details Provider Name:Christopher pal, 11/26/2024 09:15:00 AM, [address] [place] [address], [phone], Provider Name:Christopher pal, 04/22/2025 07:45:00 AM, [address] [place] [address], [phone], Provider Name:Christopher pal, 04/29/2025 09:00:00 AM, [address] [place] [address], [phone], Provider Name:Christopher pal, 10/28/2025 07:00:00 AM, [address] [place] [address], [phone], Provider Name:Christopher pal, 11/04/2025 08:30:00 AM, [address] [place] [address], [phone], Progress Notes * Christel CROSS CDOB: (74 yo F)Acc No.[id number]:10/18/2024 Progress Note Patient:?Christel CROSS Provider:?Christopher Hogan MD :1950???Age:74 Y???Sex:Female D ate:10/18/2024 Address: [address] [facility] Subjective: * Chief Complaints: * ???1. Yearly fasting labs. * Medical History:? Objective: * Vitals:? Assessment: * Assessment: 1.?Blood tests for routine g eneral physical examination - Z00.00 (Primary)???2.?Essential hypertension - I10???3.?Vitamin D deficiency - E55.9??? Plan: * Treatment: 2.?Essential hypertension?LAB: Complete Blood Count Auto Diff (Collection Date & Time - 10/18/2024 07:30 AM) ?LAB: Comprehensive [facility]. Panel Fast (Collection Date & Time - 10/18/2024 07:30 AM) ?LAB: Lipid Panel (Collection Date & Time - 10/18/2024 07:30 AM) ?LAB: Vitamin D 25-OH Total (Collection Date & Time - 10/18/2024 07:30 AM) ?LAB: UA ClnCatch+Micro w/rflx Cult (Collection Date & Time - 10/18/2024 07:30 AM) 3.?Vitamin D deficiency?LAB: Complete Blood Count Auto Diff (Collection Date & Time - 10/18/2024 07:30 AM) ?LAB: Comprehensive [facility]. Panel Fast (Collection Date & Time - 10/18/2024 07:30 AM) ?LAB: Lipid Panel (Collection Date & Time - 10/18/2024 07:30 AM) ?LAB: Vitamin D 25-OH Total (Collection Date & Time - 10/18/2024 07:30 AM) ?LAB: UA ClnCatch+Micro w/rflx Cult (Collection Date & Time - 10/18/2024 07:30 AM) * Procedure Codes:?16160 VENIP UNCT, ROUTINE* * * The named appointment provid er may or may not be the originator of this progress note, and it is not deemed complete until electronically signed by the appointment provider. Sign off status: Pending * Provider:?Christopher Hogan MD Date:?0 10/18/2024 Generated for Kaleigh will/Kami/Jatinderitting on:?11/10/2024 02:00 PM EST
--- OUTSIDE RECORDS SUMMARY | 2024-11-10 14:00 | XMS_ITS ---
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) ACTIVE 08/23/2016 PRIMARY GENERALIZED (OSTEO)ARTHRITIS (M15.0 - ICD-10-C M) ACTIVE 08/23/2016 LYMPHEDEMA, NOT ELSEWHERE CLASSIFIED (I89.0 - ICD-10-C M) ACTIVE 08/23/2016 DIFFICULTY IN WALKING, NOT E LSEWHERE CLASSIFIED (R26.2 - ICD-10-CM) ACTIVE 08/23/2016 HISTORY OF FALLING (Z91.81 - ICD-10-CM) ACTIVE 1 10/23/2015 MUSCLE WEAKNESS (GENERALIZED) (M62.81 - ICD-10-CM) ACT JOSS 08/23/2016 OTHER SPECIFIED ANEMIAS (D64.89 - ICD-10-CM) ACTIVE 08/23/2016 ESSENTIAL (PRIMARY) HYPERTENSION (I10 - ICD-10-CM) ACT JOSS 08/23/2016 GASTRO-ESOPHAGEAL REFLUX DIS EASE WITHOUT ESOPHAGITIS (K21.9 - ICD-10-CM) ACTIVE 08/23/2016 CHRONIC OBSTRUCTIVE PULMONAR Y DISEASE, UNSPECIFIED (J44.9 - ICD-10-CM) ACTIVE 08/23/2016 Results * CBC Performed by: [facility] [address] [address] [place] [id number] Component Value Range Date HGB 9.0 g/dL 12.1-15.7 08/26/2016 11:0 1 am EST * BASIC METABOLIC PANEL Performed by: [facility] [email or web address] [address] [address] Bong [place] [id number] Component Value Range Date POTASSIUM 4.3 mmol/L 3.3-5.1 08/26/2016 11:0 1 am EST SODIUM 144 mmol/L 133-145 08/26/2016 11:0 1 am EST BUN 18 mg/dL 10-24 08/26/2016 11:0 1 am EST CO2 28 mmol/L 22-33 08/26/2016 11:0 1 am EST CHLORIDE 106 mmol/L 96-108 08/26/2016 11:0 1 am EST * CBC Performed by: [facility] [address] [address] [place]ong [place] [id number] Component Value Range Date RBC 3.01 M/uL 4.00-5.10 08/26/2016 11:0 1 am EST MCHC 31.9 g/dL 30.0-37.0 08/26/2016 11:0 1 am EST MCH 29.9 pg 26.0-34.0 08/26/2016 11:0 1 am EST HCT 28.2 % 35.0-45.0 08/26/2016 11:0 1 am EST WBC 6.0 K/uL 4.8-10.8 08/26/2016 11:0 1 am EST MCV 93.7 fL 78.0-102.0 08/26/2016 11:0 1 am EST PLATELET COUNT 275 K/uL 150-400 08/26/2016 11 :01 am EST RDW-CV 14.1 % 11.0-16.0 08/26/2016 11:0 1 am EST * Estimated GFR Performed by: [facility] [address] [address] [place]ong [place] [id number] Component Value Range Date GFR, NON-BLACK 91 60-120 08/26/2016 11 :01 am EST GFR, BLACK 105 60-120 08/26/2016 11:0 1 am EST * CBC Performed by: [facility] [address] [place] [id number] [address] Bong [place] [id number] Component Value Range Date RDW-SD 47.7 fL 37.0-51.0 08/26/2016 11:0 1 am EST LYMPHS 22.1 % 20.0-40.0 08/26/2016 11:0 1 am EST MONOS 9.4 % 3.0-12.0 08/26/2016 11:0 1 am EST EOS 1.3 % 0.0-5.0 08/26/2016 11:0 1 am EST BASO 0.3 % 0.0-2.0 08/26/2016 11:0 1 am EST * BASIC METABOLIC PANEL Performed by: [facility] [address] [address] [place]ong [place] [id number] Component Value Range Date CREATININE 0.7 mg/dL 0.7-1.5 08/26/2016 11:0 1 am EST GLUCOSE 79 mg/dL 70-120 08/26/2016 11:0 1 am EST CALCIUM 8.5 mg/dL 8.8-10.2 08/26/2016 11:0 1 am EST * CBC Performed by: [facility] [address] [facility] [address] [address] [place]ong [place] [id number] Component Value Range Date MPV 9.9 fL 9.4-12.4 08/26/2016 11:0 1 am EST * Estimated GFR Performed by: [facility] [address] [address] [place]ong [place] [id number] Component Value Range Date GFR UNIT mL/min/1.73 m2 08/26/2016 11 :01 am EST * CBC Performed by: [facility] [address] [address] [place]ong [place] [id number] Component Value Range Date ABS LYMPHOCYTES 1.3 K/uL 1.0-4.3 08/26/2016 1 1:01 am EST ABS MONOCYTES 0.6 K/uL 0.2-1.0 08/26/2016 11: 01 am EST ABS EOSINOPHILS 0.08 K/uL 0.02-0.50 08/26/2016 1 1:01 am EST ABS BASOPHILS 0.02 K/uL 0.02-0.10 08/26/2016 11: 01 am EST IMMATURE GRANS % 0.3 % 0.0-0.5 08/26/2016 11:01 am EST ABS IMMATURE GRANS 0.02 K/uL 0.00-0.03 6 11:01 am EST NEUTS 66.6 % 40.0-70.0 08/26/2016 11:0 1 am EST ABS NEUTROPHILS 4.0 K/uL 1.8-7.7 08/26/2016 1 1:01 am EST Encounters Encounter Performer Performer Role Encounter Diagnoses Location Date Discharge - Discharged to home or self care - Private home/apt. with home health services [facility] 08/23/2016 12:00 am EST - 09/03/2016 01:05 pm EST Social History
--- OUTSIDE RECORDS SUMMARY | 2024-11-10 14:00 | XMS_ITS ---
Author Organization Christopher Hogan MD Address [address] [place], [place] [id number] Care Team Providers Care Network Engineering Advisor Name Role Phone Christopher Hogan Primary Care Provider Allergies Allergen (clinical drug ingredient) Drug/Non Drug Allergy documented on EMR Reaction Allergy Type Onset Date Status furosemide Furosemide elevated bun and cr Drug Allergy Active sulfacetamide Sulfacetamide Sodium Unknown Drug Allergy Active Erythrocin Unknown Drug Allergy Active Reason For Referral Reason needs colonoscopy Diagnosis 1 Colon cancer screeni (Z12.11) Referral Organization Christopher Hogan MD Referring Provider First Name Christopher Referring Provider Last Name Edison Referring Provider Speciality Internal M edicine Referred Provider Edmundo Marquez Referred Provider Specialty Gastroentero logy General Notes Gita Lawrence 0 10/25/2024 10:32:38 AM > info faxed Referral Priority Routine REASON FOR VISIT annual visit Medications Medication SIG (Take, Route, Frequency, Duration) Notes Start Date End Date Status Vitamin B12 1000 MCG 1 tablet Orally Onc e a day for 30 day(s) Active ProAir HFA 108 (90 Base) MCG/ACT 2 puffs as needed Inhalation every 6 hrs for 30 days 02/16/2018 Not-Taking Ibuprofen 800 MG 1 tablet Orally Thre e times a day for 30 day(s) 09/07/2012 Not-Taking Albuterol Sulfate (2.5 MG/3ML) 0.083% 3 ml as needed Inhalation every 6 hrs for 60 days 10/21/2023 Active Furosemide 20 MG 1 tablet Orally Once a day for 30 day(s) 04/02/2021 Not-Taking Doxycycline Hyclate 50 MG TAKE ONE CAPSU LE BY MOUTH EVERY DAY for 90 Active Tiadylt ER 240 MG TAKE ONE CAPSULE BY MOUTH EVERY DAY for 90 Active Clotrimazole-Betamethason e 1-0.05 % 1 application Externally Twice a day for 10 days 12/15/2020 Not-Taking Irbesartan-hydroCHLOROthi azide 300-12.5 MG 0.5 tab Orally Once a day Active Ventolin HFA 108 (90 Base) MCG/ACT inhale 2 puffs by mouth every 4 hours Inhalation every 4 hrs Active Vitamin D3 25 MCG (1000 UT) 1 capsule Orally Once a day 09/20/2019 Active Atorvastatin Calcium 40 MG TAKE ONE TABLET BY MOUTH EVERY DAY for 90 Active Omeprazole 20 MG TAKE ONE CAPSULE BY MOUTH EVERY DAY for 90 Active Social History Tobacco Use: Social History Observation Description Date Details (start date - stop date) Never Smoker NA - NA Tobacco Use/Smoking Question Answer Notes Patient is a nonsmoker Additional Findings: Tobacco Non-User Cu rrent non-smoker, currently using no form of tobacco Alcohol Screen Question Answer Notes Did you have a drink containing alcohol in the p ast year? No Points 0 Interpretation Negative Vital Signs Height 64 in 10/25/2024 Weight 179 lbs 10/25/2024 BMI 30.72 kg/m2 10/25/2024 weight is down 7 pounds [facility] [address] e Encounters Encounter Location Date Provider Diagnosis Christopher Hogan MD [address] [place], [place] [phone] 10/25/2024 Christopher Hogan Mild intermittent asthma with acute exacerbation J45.21 ; Annual physical exam Z00.00 ; Lymphedema I89.0 ; Essential hypertension I10 ; Palpable abdominal mass R19.00 ; Vitamin D deficiency E55.9 ; Colon cancer screening Z12.11 and Depression screening Z13.31 Assessments Encounter Date Diagnosis (ICD Code) Assessment Notes Treatment Notes Treatment Clinical Notes Section Notes 10/25/2024 Mild intermittent asthma with acute exacerbation (ICD-10 - J45.21) stable, will continue current regiment 10/25/2024 Annual physical exam (ICD-10 - Z00.00) labs reviewed and discussed with patient, appt with dr marquez or radha for routine colonoscopy 10/25/2024 Lymphedema (ICD-10 - I89.0) doing much better with therapy 10/25/2024 Essential hypertension (ICD-10 - I10) doing well, will continue current regiment 10/25/2024 Palpable abdominal mass (ICD-10 - R19.00) order faxed to [facility] dept . pending diagnostic testing 10/25/2024 Vitamin D deficiency (ICD-10 - E55.9) stable, will continue current regiment 10/25/2024 Colon cancer screening (ICD-10 - Z12.11) will get colonoscopy this year 10/25/2024 Depression screening (ICD-10 - Z13.31) negative screen Plan Of Treatment Medication Medication Name Sig Start Date Stop Date Notes Albuterol Sulfate (2.5 MG/3ML) 0.083% 3 ml as needed Inhalation every 6 hrs for 60 days 10/21/2023 Treatment Notes Assessment Notes Mild intermittent asthma wit h acute exacerbation stable, will continue current regiment Annual physical exam labs reviewed and d iscussed with patient, appt with dr marquez or radha for routine colonoscopy Lymphedema doing much better wi th therapy Essential hypertension doing well, will continue current regiment Palpable abdominal mass order faxed to [facility] dept . pending diagnostic testing Vitamin D deficiency stable, will contin ue current regiment Colon cancer screening will get colonosc opy this year Depression screening negative screen Pending Test Test Name Order Date CT ABD & PELVIS WITH CONTRAST 10/25/2024 Referrals Referral Date Details 10/25/2024 10/25/2024, needs co lonoscopy , Edmundo Marquez Next Appt Details Follow Up: 4 Weeks, Reason: Provider Name:Christopher pal, 11/26/2024 09:15:00 AM, [address] [place] [address], [address], [place], [place], [phone], Provider Name:Christopher pal, 04/22/2025 07:45:00 AM, [address], [address], [place], [phone], Provider Name:Christopher Carlton kae, 04/29/2025 09:00:00 AM, [address], [address], [place], [phone], Provider Name:Christopher Carlton zitar, 10/28/2025 07:00:00 AM, [address], [address], [place], [phone], Provider Name:Christopher John Carlton zitar, 11/04/2025 08:30:00 AM, [address], [address], [place], [phone], Progress Notes * Christel CROSS CDOB: (74 yo F)Acc No.[id number]:10/25/2024 Progress Notes Patient:?Christel Cross C Provider:?Christopher Hogan MD :1950???Age:74 Y???Sex:Female D ate:10/25/2024 Address:[address] [place] [address] [place] [id number] Subjective: * Chief Complaints: * ???Annual visit * HPI: ???Depression Screening:?PHQ-9?Little interest or pleasure in doing things?Not at all,?Feeling down, depressed, or hopeless?Not at all,?Trouble falling or staying asleep, or sleeping too much?Not at all,?Feeling tired or having little energy?Not at all,?Poor appetite or overeating?Not at all,?Feeling bad about yourself or that you are a failure, or have let yourself or your family down?Not at all,?Trouble concentrating on things, such as reading the newspaper or watching television?Not at all,?Moving or speaking so slowly that other people could have noticed; or the opposite, being so fidgety or restless that you have been moving around a lot more than usual?Not at all,?Thoughts that you would be better off or of hurting yourself in some way?Not at all,?Total Score?0.?Interpretation and Intervention?Depression Screening Findings?Negative,?Follow-Up for Depression?: review of PHQ-9 found negative result, no follow-up needed.? here for yearly evaluation. ???Communication Needs:?Communication Needs?Does the patient have a hearing impairment?No,?Does the patient have a vision impairment??Yes,?If yes, what is the vision impairment??Glasses,?Does the patient have a cognition impairment??No.?Fall Risk:?History?Have you had any falls with injury in the past year??No,?Have you had two or more falls in the past year??No.?SDOH Questions:?SDOH Questions?In the past year have you been worried about losing housing??No,?In the past year have you or any family members you live with been unable to get any of the following when it was really needed? Check all that apply:?None.? * ROS:?General/Constitutional:?Change in appetite?denies.?Chills?denies.?Fever?denies.?Ophthalmologic:?Blurred vision?denies.?Discharge?denies.?Pain?denies.?ENT:?Decreased hearing?denies.?Sore throat?denies.?Swollen glands?denies.?Endocrine:?Cold intolerance?denies.?Excessive thirst?denies.?Heat intolerance?denies.?Weight loss?denies.?Respiratory:?Cough?denies.?Shortness of breath at rest?denies.?Shortness of breath with exertion?denies.?Wheezing?denies.?Cardiovascular:?Chest pain at rest?denies.?Chest pain with exertion?denies.?Irregular heartbeat?denies.?Shortness of breath?denies.?Gastrointestinal:?Abdominal pain?denies.?Change in bowel habits?denies.?Diarrhea?denies.?Nausea?denies.?Rectal bleeding?denies.?Vomiting?denies .?Genitourinary:?Blood in urine?denies.?Difficulty urinating?denies.?Frequent urination?denies.?Urinary incontinence?Denies.?Musculoskeletal:?Painful joints?denies.?Weakness?denies.?Skin:?Dry skin?denies.?Itching?denies.?Denies?Mole(s),? changes in moles, new moles or any lesions of concern.?Denies?Photosensitivity.?Rash?denies.?Neurologic:?Dizziness?denies.?Fainting?denies.?Headache?denies.? * Medical History:? * Surgical History:? * Hospitalization/Major Diagno stic Procedure:? * Family History:?Father: dece ased.?Mother: .?1 daughter(s) . .? Adopted at does not know family history.,. * Social History:?Tobacco Use:?Tobacco Use/Smoking?Patient is a?nonsmoker,?Additional Findings: Tobacco Non-User?Current non-smoker, currently using no form of tobacco.?Drugs/Alcohol:?Alcohol Screen?Did you have a drink containing alcohol in the past year??No,?Points?0,?Interpretation?Negative.?Miscellaneous:?Caffeine: yes, frequency:, 1-2 cups per day. Children: yes. Community involvements: yes. Exercise: yes, walks QD. Home smoke detector use: yes. Housing: owning. Living with: spouse. Marital status: . Occupation: works full-time. Pets: none. no Travel outside of the [place]. * Medications:?TakingVitamin B 12 1000 MCG Tablet Extended Release 1 tablet Orally Once a dayVitamin D3 25 MCG (1000 UT) Capsule 1 capsule Orally Once a dayAtorvastatin Calcium 40 MG Tablet TAKE ONE TABLET BY MOUTH EVERY DAY Omeprazole 20 MG Capsule Delayed Release TAKE ONE CAPSULE BY MOUTH EVERY DAY Doxycycline Hyclate 50 MG Capsule TAKE ONE CAPSULE BY MOUTH EVERY DAY Irbesartan-hydroCHLOROthiazide 300-12.5 MG Tablet 0.5 tab Orally Once a dayVentolin HFA 108 (90 Base) MCG/ACT Aerosol Solution inhale 2 puffs by mouth every 4 hours Inhalation every 4 hrsAlbuterol Sulfate (2.5 MG/3ML) 0.083% Nebulization Solution 3 mL as needed Inhalation every 6 hrsTiadylt ER 240 MG Capsule Extended Release 24 Hour TAKE ONE CAPSULE BY MOUTH EVERY DAY Taking Vitamin B12 1000 MCG Tablet Extended Release 1 tablet Orally Once a dayTaking Vitamin D3 25 MCG (1000 UT) Capsule 1 capsule Orally Once a dayTaking Atorvastatin Calcium 40 MG Tablet TAKE ONE TABLET BY MOUTH EVERY DAY Taking Omeprazole 20 MG Capsule Delayed Release TAKE ONE CAPSULE BY MOUTH EVERY DAY Taking Doxycycline Hyclate 50 MG Capsule TAKE ONE CAPSULE BY MOUTH EVERY DAY Taking Irbesartan-hydroCHLOROthiazide 300- 12.5 MG Tablet 0.5 tab Orally Once a dayTaking Ventolin HFA 108 (90 Base) MCG/ACT Aerosol Solution inhale 2 puffs by mouth every 4 hours Inhalation every 4 hrsTaking Albuterol Sulfate (2.5 MG/3ML) 0.083% Nebulization Solution 3 mL as needed Inhalation every 6 hrsTaking Tiadylt ER 240 MG Capsule Extended Release 24 Hour TAKE ONE CAPSULE BY MOUTH EVERY DAY Not-Taking/PRNClotrimazole-Betamethasone 1-0.05 % Cream 1 application Externally Twice a dayFurosemide 20 MG Tablet 1 tablet Orally Once a dayProAir HFA 108 (90 Base) MCG/ACT Aerosol Solution 2 puffs as needed Inhalation every 6 hrsIbuprofen 800 MG Tablet 1 tablet Orally Three times a dayMedication List reviewed and reconciled with the patientNot-Taking/PRN Clotrimazole-Betamethasone 1-0.05 % Cream 1 application Externally Twice a dayNot-Taking/PRN Furosemide 20 MG Tablet 1 tablet Orally Once a dayNot-Taking/PRN ProAir HFA 108 (90 Base) MCG/ACT Aerosol Solution 2 puffs as needed Inhalation every 6 hrsNot-Taking/PRN Ibuprofen 800 MG Tablet 1 tablet Orally Three times a dayMedication List reviewed and reconciled with the patient * Allergies:?Sulfacetamide Sod iumErythrocinFurosemide: elevated bun and cryes[Allergies Verified] Objective: * Vitals:?Ht: 64, Wt:179, BMI: 30.72 weight is down 7 pounds since. * ???Past Orders: ???Lab:Lipid Panel (Order Da te - 10/18/2024) (Collection Date - 10/18/2024) ? Value Reference Range ?Triglycerides 61 <150 - mg/dL ?Cholesterol 139 <200 - m g/dL ?LDL Cholesterol Calculated 69 <100 - mg/dL ?HDL Cholesterol 58 >40 - mg/dL ???Lab:Vitamin D 25-OH Total (Order Date - 10/18/2024) (Collection Date - 10/18/2024) ? Value Reference Range ?Vitamin D 25-OH Total 47.7 >30 - ng/mL ???Lab:UA ClnCatch+Micro w/r flx Cult (Order Date - 10/18/2024) (Collection Date - 10/18/2024) ? Value Reference Range ?Color Urine Yellow - ?Appearance Urine Clear - ?PH 6.0 5.0-9.0 - ?Glucose Urine UA Negative Neg ative - mg/dL ?Urine Blood Negative Negative - ?Specific [place] - Urine 1.020 1.005-1.025 - ?Urine Protein Negative Neg-Tr nina - mg/dL ?Urine Ketones Negative Negati ve - mg/dL ?Nitrite Urine Negative Negati ve - ?Leukocyte Esterase Urine Negative Negative - ?RBC Urine 0-2 0-2 - /HPF ?WBC Urine 0-5 0-5 - /HPF ?Squamous Epithelial Cell Urine 3-5 0-2 - /HPF ?Bacteria Urine None Seen None Seen - ?Hyaline Casts Urine 0-2 0-2 - /LPF ???Lab:Complete Blood Count Auto Diff (Order Date - 10/18/2024) (Collection Date - 10/18/2024) ? Value Reference Range ?White Blood Count 6.0 4. 8-10.8 - X10*3/uL ?Red Blood Count 3.93 L 4.20 -5.50 - X10*6/uL ?Hemoglobin 11.9 L 12.0-16.0 - g/dl ?Hematocrit 36.8 L 37.0-47.0 - % ?Mean Corpuscular Volume 93.6 80.0-98.0 - fL ?Mean Corpuscular Hemoglobin 30.3 27.0-33.0 - pg ?Mean Corpuscular HGB Conc 32.3 31.0-35.0 - g/dl ?Red Cell Distribution Width 14.4 11.0-16.0 - % ?Platelet Count 252 160-4 00 - X10*3/uL ?Mean Platelet Volume 10.3 9.4-12.3 - fL ?Neutrophils Percent Auto 52.7 45-73 - % ?Imm Gran Pct Auto 0.5 H 0. 0-0.4 - % ?Lymphocytes Percent Auto 34.5 20-40 - % ?Monocytes Percent Auto 10.8 2-11 - % ?Eosinophils Percent Auto 1.0 0-4 - % ?Basophils Percent Auto 0.5 0-2 - % ?NRBC Pct Auto 0.0 0.0-0. 2 - /100WBC ?Neutrophils Absolute Auto 3.1 2.0-8.3 - x10*3/uL ?Imm Gran Abs Auto 0.03 0. 00-0.03 - X10*3/uL ?Lymphocytes Absolute Auto 2.1 1.2-4.9 - X10*3/uL ?Monocytes Absolute Auto 0.6 0.1-1.2 - X10*3/uL ?Eosinophils Absolute Auto 0.1 0.0-0.4 - X10*3/uL ?Basophils Absolute Auto 0.0 0.0-0.2 - X10*3/uL ?NRBC Abs Auto 0.000 0.0-0. 012 - X10*3/uL ???Lab:Comprehensive Reading. P humberto Fast (Order Date - 10/18/2024) (Collection Date - 10/18/2024) ? Value Reference Range ?Sodium 144 135-145 - mmo l/L ?Bilirubin Total 0.5 0.0- 1.0 - mg/dL ?Aspartate Amino Transferase 34 H 5-31 - U/L ?Alanine Aminotransferase 22 0-31 - U/L ?Total Protein 6.1 L 6.5-8. 0 - g/dL ?Albumin Level 3.6 3.5-5. 0 - g/dL ?Alkaline Phosphatase 88 39-117 - U/L ?Potassium 3.9 3.3-5.1 - mmol/L ?Chloride 114 H 96-108 - mm ol/L ?Carbon Dioxide 25 22-29 - mmol/L ?Anion Gap 9 L 12-20 - ?Blood Urea Nitrogen 25 H 9-16 - mg/dL ?Creatinine 0.89 0.5-1.4 - mg/dL ?Estimated Glomerular Filt Rate > 60 - ?Glucose Fasting 86 60-9 9 - mg/dL ?Calcium 9.0 8.4-10.2 - m g/dL * Examination: ???General Examination: ?GENERAL APPEARANCE:?well developed, well nourished, in no acute distress.?HEAD:?normocephalic, atraumatic.?EYES:?pupils equal, round, reactive to light and accommodation, sclera non-icteric.?EARS:?normal.?ORAL CAVITY:?mucosa moist.?THROAT:?clear.?NECK/THYROID:?neck supple, full range of motion, no cervical lymphadenopathy, no bruits.?SKIN:?warm and dry, no suspicious lesions.?HEART:?regular rate and rhythm, S1, S2 normal, no murmurs.?LUNGS:?clear to auscultation bilaterally.?BREASTS:?No mass, no lump.?ABDOMEN:?soft, nontender, nondistended, bowel sounds present, normal, no organomegaly , , abnormal with a 5 inch mass in rt lower quadrant.?RECTAL EXAM:?no stool. will get colonoscopy this year.?FEMALE GENITOURINARY:?not done.?EXTREMITIES:?no clubbing, cyanosis, or edema.?NEUROLOGIC:?nonfocal, motor strength normal upper and lower extremities, sensory exam intact.? Assessment: * Assessment: 1.?Annual physical exam - Z0 0.00 (Primary)?2.?Mild intermittent asthma with acute exacerbation - J45.21?3.?Lymphedema - I89.0?4.?Essential hypertension - I10?5.?Palpable abdominal mass - R19.00?6.?Vitamin D deficiency - E55.9?7.?Colon cancer screening - Z12.11?8.?Depression screening - Z13.31? Plan: * Treatment: 2.?Mild intermittent asthma with acute exacerbation? Refill Albuterol Sulfate Nebulization Solution, (2.5 MG/3ML) 0.083%, 3 ml as needed, Inhalation, every 6 hrs, 60 days, 720 ml, Refills 2.?? Notes: stable, will continue current regiment?? 3.?Lymphedema? Notes: doing much better with therapy?? 4.?Essential hypertension? Notes: doing well, will continue current regiment?? 5.?Palpable abdominal mass?Imaging: CT ABD & PELVIS WITH CONTRAST Notes: order faxed to [facility] dept . pending diagnostic testing?? 6.?Vitamin D deficiency? Notes: stable, will continue current regiment?? 7.?Colon cancer screening? Notes: will get colonoscopy this year? Referral To:Edmundo Marquez??Gastroenterology ?Reason:needs colonoscopy 8.?Depression screening? Notes: negative screen?? * Procedure Codes:? * Follow Up:?4 Weeks * * Sign off status: Completed true * Provider:?Christopher Hogan MD Date:?0 10/25/2024 Generated for Kaleigh will/Kami/eTransmitting on:?11/10/2024 02:00 PM EST History and Physical Notes * HPI (History of Present Illness) Category Sub-Category Detail Notes Category Not es Depression Screening PHQ-9 Little inte rest or pleasure in doing things: Not at all here for yearly evaluation Feeling down, depressed, or hopeless: No t at all Trouble falling or staying asleep, or sl eeping too much: Not at all Feeling tired or having little energy: N ot at all Poor appetite or overeating: Not at all Feeling bad about yourself o r that you are a failure, or have let yourself or your family down: Not at all Trouble concentrating on thi ngs, such as reading the newspaper or watching television: Not at all Moving or speaking so slowly that other people could have noticed; or the opposite, being so fidgety or restless that you have been moving around a lot more than usual: Not at all Thoughts that you would be b jose de jesus off or of hurting yourself in some way: Not at all Total Score: 0 Interpretation and Intervention Depression Esa johns Findings: Negative Follow-Up for Depression: : review of PH Q-9 found negative result, no follow-up needed SDOH Questions SDOH Questions In the past year have you been worried about losing housing?: No In the past year have you or any family members you live with been unable to get any of the following when it was really needed? Check all that apply:: None Fall Risk History Have you had any falls with injury i n the past year?: No Have you had two or more falls in the year?: No Communication Needs Communication Needs Does the patient have a hearing impairment: No Does the patient have a vision impairmen t?: Yes ?If yes, what is the vision impairment?: Glasses Does the patient have a cognition impair ment?: No Examination Category Sub-Category Detail Notes Category Not es General Examination GENERAL APPEARANCE: well dev eloped, well nourished, in no acute distress HEAD: normocephalic, atrau matic EYES: pupils equal, round, reactive to light and accommodation, sclera non- icteric EARS: normal THROAT: clear NECK/THYROID: neck supple, full ra nge of motion, no cervical lymphadenopathy, no bruits HEART: regular rate and rhy thm, S1, S2 normal, no murmurs LUNGS: clear to auscultatio n bilaterally ABDOMEN: soft, nontender, non distended, bowel sounds present, normal, no organomegaly , , abnormal with a 5 inch mass in rt lower quadrant NEUROLOGIC: nonfocal, motor stre ngth normal upper and lower extremities, sensory exam intact SKIN: warm and dry, no tevin picious lesions EXTREMITIES: no clubbing, cyanosi s, or edema BREASTS: No mass, no lump RECTAL EXAM: no stool. will get c olonoscopy this year FEMALE GENITOURINARY: not done ORAL CAVITY: mucosa moist Consultation Request Notes Referral Date Referring Provider Referred Provider Not es 10/25/2024 Christopher Hogan Robert needs colo noscopy
--- OUTSIDE RECORDS SUMMARY | 2024-11-10 14:00 | XMS_ITS ---
Author Organization Christopher Hogan MD Address [address] [place] [phone] Care Team Providers Care Chemical Handler Name Role Phone Christopher Hogan Primary Care Provider REASON FOR VISIT auth for CT abd and pelvis Encounters Encounter Location Date Provider Diagnosis Christopher Hogan MD [address] [facility] [address] [place] [phone] 10/29/2024 Christopher Hogan Plan Of Treatment Next Appt Details Provider Name:Christopher pal, 11/26/2024 09:15:00 AM, [address] [place] [address], [address] [facility], [place], [place], [phone], Provider Name:Christopher pal, 04/22/2025 07:45:00 AM, [address] [place] [address], [address], [phone], Provider Name:Christopher pal, 04/29/2025 09:00:00 AM, [address] [place] [address], [address], [phone], Provider Name:Christopher Carlton ier, 10/28/2025 07:00:00 AM, [address], [address], [place], [phone], Provider Name:Christopher Carlton ier, 11/04/2025 08:30:00 AM, [address], [address], [place], [phone], Progress Notes * Christel CROSS CDOB: (74 yo F)Acc No.[id number]:10/29/2024 Patient:?Christel Cross C :1950???Age:74 Y???Sex:Female Address:[address] [place] [address] [place] [address] * true * Date:? Generated for Kaleigh will/Kami/eTransmitting on:?11/10/2024 01:59 PM EST
[2024-11-10] MEDS: iohexoL 350 MG/ML 75 ML INFUS..BTL 72 ML IV (14:28)
[2024-11-10] MEDS: Barium Sulfate Oral (Berry) 450 ML ORAL.SUSP 900 ML PO (14:29)
== END 2024-11-10 11:34 | disposition home or self-care (01) ==
LOC: HO.CT 11:33
PROVIDERS: PCP Internal Medicine; Visit Provider Internal Medicine
DX: J45.21 Mild intermittent asthma with (acute) exacerbation (principal); R19.00 Intra-abdominal and pelvic swelling, mass and lump, unspecified site
CPT/HCPCS: 74177; Q9967

== ENCOUNTER → 2024-11-10 11:35 | Outpatient (BNV) | payer BC, SELFPAY | PROVIDERS: PCP Internal Medicine; Visit Provider Radiology Diagnostic Radiology | DX: K80.20 Calculus of gallbladder without cholecystitis without obstruction (principal); K57.11 Diverticulosis of small intestine without perforation or abscess with bleeding; M47.9 Spondylosis, unspecified; M41.9 Scoliosis, unspecified; M16.12 Unilateral primary osteoarthritis, left hip; R19.07 Generalized intra-abdominal and pelvic swelling, mass and lump | CPT/HCPCS: 74177 ==

== ENCOUNTER 2024-12-06 11:33 | Outpatient (AMB) | payer BC, SELFPAY ==
--- NOTE | 2024-12-06 11:35 | MHC.OFFVIS ---
Vital Signs 12/06/24 11:44 Height 5 ft 2 in Weight 177 lb BMI 32.4 BP 138/74 Blood Pressure Location Rt brachial Position Sitting Pulse 98 Intake Visit Reasons: painful abdominal seroma Intake Note: Patient sheduled today's visit for painful abdominal seroma. Present for 2m. Patient c/o: reports seroma has been drained once before. Seroma causes a lot of pain under Rt side ribcage. ABD/ pelvis CT: 11-10-2024 Group Chief Operator Required: No Accompanied by: Self / Same As Patient Allergies adhesive tape [ADHESIVE TAPE] Allergy (Severe, Verified 12/06/24 11:44) Severe Itching Sulfa (Sulfonamide Antibiotics) [SULFA (SULFONAMIDE ANTIBIOTICS)] Allergy (Severe, Verified 12/06/24 11:44) Anaphylaxis erythromycin base Adverse Reaction (Intermediate, Verified 12/06/24 11:44) Vomiting HPI Comments Details: Patient whom I saw a year ago who had an open ventral hernia repair and developed a seroma requiring JULIO drain. It was performed by another surgeon.. At the last visit, she underwent aspiration of this. She now presents with a recurrence of the seroma of a right lower quadrant. It has become more symptomatic and she would like to have it drained. [facility] Medical History Asthma Screening for colon cancer Morbid obesity due to excess calories HTN (hypertension) Skin cancer (melanoma) Surgical History H/O colonoscopy History of right hip replacement H/O wrist surgery H/O: History of kidney surgery H/O hernia repair Family History Mother No problems noted. Social History Household Members: Spouse Alcohol intake: never Physical Exam Vital Signs: Last Vital Signs Pulse 98 12/06/24 11:44 BP 138/74 12/06/24 11:44 BMI result Body Mass Index 32.4 GI Other: Small right lower quadrant seroma identified. Under sterile technique, aspiration of this retrieved 20 cc of serous fluid. Dressing applied. Well-tolerated. Office Procedures Aspiration of Seroma Aspiration of Seroma: 04308 Seroma Aspiration All charges added?: Procedure code (CPT) selection complete Assessment & Plan Assessment & Plan (1) Seroma due to trauma: Code(s): T79.2XXA - Traumatic secondary and recurrent hemorrhage and seroma, initial encounter Category: Surgical Plan Reasons for recurrence of the seroma of which although small is symptomatic with the patient are from variety reasons ranging from capsule from prior surgery to underlying extreme activities. The meantime, patient has been given local wound instructions and should this recur, she will contact me Orders: Orders AMB Aspiration of Seroma Today T79.2XXA - Traumatic secondary and recurrent hemorrhage and seroma, initial encounter Coding Level of Care Code Est Pt Level 5 (27674) Diagnoses Seroma due to trauma T79.2XXA CPT Codes Aspiration of Seroma ([id number])
[2024-12-06 11:44] VITALS: BP 138/74; PULSE 98; BMI 32.4
--- OUTSIDE RECORDS SUMMARY | 2024-12-06 13:20 | XMS_ITS ---
Author Organization Christopher Hogan MD Address [address] [place], [place] [id number] Care Team Providers Care Commercial Real Estate Broker Name Role Phone Christopher Hogan Primary Care Provider Allergies Allergen (clinical drug ingredient) Drug/Non Drug Allergy documented on EMR Reaction Allergy Type Onset Date Status furosemide Furosemide elevated bun and cr Drug Allergy Active sulfacetamide Sulfacetamide Sodium Unknown Drug Allergy Active Erythrocin Unknown Drug Allergy Active Reason For Referral Reason please romeo denis Diagnosis 1 Posttraumatic seroma (T79.2XXA) Referral Organization Christopher Hogan MD Referring Provider First Name Christopher Referring Provider Last Name Edison Referring Provider Speciality Internal M edicine Referred Provider Jatinder Zuluaga Referred Provider Specialty Surgery General Notes Gita Lawrence 0 11/26/2024 09:33:17 AM >info faxed to office. Patient is aware of appt Referral Priority Routine Referral Appointment Date 12/06/2024 REASON FOR VISIT 4 week Medications Medication SIG (Take, Route, Frequency, Duration) Notes Start Date End Date Status Furosemide 20 MG 1 tablet Orally Once a day for 30 day(s) 04/02/2021 Not-Taking Clotrimazole-Betamethason e 1-0.05 % 1 application Externally Twice a day for 10 days 12/15/2020 Not-Taking Irbesartan-hydroCHLOROthi azide 300-12.5 MG 0.5 tab Orally Once a day Active Ibuprofen 800 MG 1 tablet Orally Thre e times a day for 30 day(s) 09/07/2012 Not-Taking ProAir HFA 108 (90 Base) MCG/ACT 2 puffs as needed Inhalation every 6 hrs for 30 days 02/16/2018 Not-Taking Doxycycline Hyclate 50 MG TAKE ONE CAPSU LE BY MOUTH EVERY DAY for 90 Active Tiadylt ER 240 MG TAKE ONE CAPSULE BY MOUTH EVERY DAY for 90 Active Ventolin HFA 108 (90 Base) MCG/ACT inhale 2 puffs by mouth every 4 hours Inhalation every 4 hrs Active Atorvastatin Calcium 40 MG TAKE ONE TABLET BY MOUTH EVERY DAY for 90 Active Albuterol Sulfate (2.5 MG/3ML) 0.083% 3 ml as needed Inhalation every 6 hrs for 60 days 10/21/2023 Active Vitamin B12 1000 MCG 1 tablet Orally Onc e a day for 30 day(s) Active Omeprazole 20 MG TAKE ONE CAPSULE BY MOUTH EVERY DAY for 90 Active Vitamin D3 25 MCG (1000 UT) 1 capsule Orally Once a day 09/20/2019 Active Vital Signs Blood pressure systolic 152 mm Hg 11/26/19 25 Blood pressure diastolic 86 mm Hg 025 Height 64 in 11/26/2024 Weight 180 lbs 11/26/2024 BMI 30.89 kg/m2 11/26/2024 Encounters Encounter Location Date Provider Diagnosis Christopher Hogan MD [address] [place] [address] [place] [phone] 11/26/2024 Christopher Hogan Posttraumatic seroma T79.2XXA ; Essential hypertension I10 and Elevated BUN R79.9 Assessments Encounter Date Diagnosis (ICD Code) Assessment Notes Treatment Notes Treatment Clinical Notes Section Notes 11/26/2024 Posttraumatic seroma (ICD-10 - T79.2XXA) has had it drained in past. 11/26/2024 Essential hypertension (ICD-10 - I10) doiing well, will continue current regiment 11/26/2024 Elevated BUN (ICD-10 - R79.9) stable, will continue to monitor Plan Of Treatment Medication Medication Name Sig Start Date Stop Date Notes Irbesartan-hydroCHLOROthiazi de 300-12.5 MG 0.5 tab Orally Once a day Treatment Notes Assessment Notes Posttraumatic seroma has had it drained in past. Essential hypertension doiing well, will continue current regiment Elevated BUN stable, will continu e to monitor Referrals Referral Date Details 11/26/2024 11/26/2024, please e antonio and treat, Jatinder Zuluaga Next Appt Details Provider Name:Christopher Carlton ier, 04/22/2025 07:45:00 AM, [address] [place] [address], [address], [place], [place], [phone], Provider Name:Christopher Carlton ier, 04/29/2025 09:00:00 AM, [address] [place] [address], [address], [place], [place], [phone], Provider Name:Christopher Carlton ier, 10/28/2025 07:00:00 AM, [address] [place] [address], [address], [place], [place], [phone], Provider Name:Christopher Carlton ier, 11/04/2025 08:30:00 AM, [address] [place] [address], [address], [place], [place], [phone], Progress Notes * Christel CROSS CDOB: (74 yo F)Acc No.[id number]:11/26/2024 Progress Notes Patient:?Christel CROSS Provider:?Christopher Hogan MD :1950???Age:74 Y???Sex:Female D ate:11/26/2024 Address: [id number] Subjective: * Chief Complaints: * ???4 week * HPI: ???Symptom(s):? patient is a 74 yo female here for 4 week follow up visit,. * ROS:?General/Constitutional:?Denies?Chills.?Denies?Fatigue.?Denies?Fever.?Denies?Headache.?ENT:?Patient denies?decreased sense of smell, any loss of taste, sore throat.?Denies?Sore throat.?Respiratory:?Denies?Cough.?Denies?Shortness of breath at rest.?Denies?Shortness of breath with exertion.?Gastrointestinal:?Denies?Diarrhea.?Denies?Nausea.?Musculoskeletal:?Patient denies?muscle aches.?Peripheral Vascular:?Patient denies?red and blue toes.? * Medical History:? * Surgical History:? * Hospitalization/Major Diagno stic Procedure:? * Medications:?TakingVitamin B 12 1000 MCG Tablet Extended Release 1 tablet Orally Once a day Vitamin D3 25 MCG (1000 UT) Capsule 1 capsule Orally Once a day Omeprazole 20 MG Capsule Delayed Release TAKE ONE CAPSULE BY MOUTH EVERY DAY Doxycycline Hyclate 50 MG Capsule TAKE ONE CAPSULE BY MOUTH EVERY DAY Irbesartan-hydroCHLOROthiazide 300-12.5 MG Tablet 0.5 tab Orally Once a day Ventolin HFA 108 (90 Base) MCG/ACT Aerosol Solution inhale 2 puffs by mouth every 4 hours Inhalation every 4 hrs Tiadylt ER 240 MG Capsule Extended Release 24 Hour TAKE ONE CAPSULE BY MOUTH EVERY DAY Albuterol Sulfate (2.5 MG/3ML) 0.083% Nebulization Solution 3 ml as needed Inhalation every 6 hrs Atorvastatin Calcium 40 MG Tablet TAKE ONE TABLET BY MOUTH EVERY DAY Taking Vitamin B12 1000 MCG Tablet Extended Release 1 tablet Orally Once a day Taking Vitamin D3 25 MCG (1000 UT) Capsule 1 capsule Orally Once a day Taking Omeprazole 20 MG Capsule Delayed Release TAKE ONE CAPSULE BY MOUTH EVERY DAY Taking Doxycycline Hyclate 50 MG Capsule TAKE ONE CAPSULE BY MOUTH EVERY DAY Taking Irbesartan-hydroCHLOROthiazide 300-12.5 MG Tablet 0.5 tab Orally Once a day Taking Ventolin HFA 108 (90 Base) MCG/ACT Aerosol Solution inhale 2 puffs by mouth every 4 hours Inhalation every 4 hrs Taking Tiadylt ER 240 MG Capsule Extended Release 24 Hour TAKE ONE CAPSULE BY MOUTH EVERY DAY Taking Albuterol Sulfate (2.5 MG/3ML) 0.083% Nebulization Solution 3 ml as needed Inhalation every 6 hrs Taking Atorvastatin Calcium 40 MG Tablet TAKE ONE TABLET BY MOUTH EVERY DAY Not-Taking/PRNClotrimazole-Betamethasone 1-0.05 % Cream 1 application Externally Twice a day Furosemide 20 MG Tablet 1 tablet Orally Once a day ProAir HFA 108 (90 Base) MCG/ACT Aerosol Solution 2 puffs as needed Inhalation every 6 hrs Ibuprofen 800 MG Tablet 1 tablet Orally Three times a day Medication List reviewed and reconciled with the patientNot-Taking/PRN Clotrimazole-Betamethasone 1-0.05 % Cream 1 application Externally Twice a day Not-Taking/PRN Furosemide 20 MG Tablet 1 tablet Orally Once a day Not-Taking/PRN ProAir HFA 108 (90 Base) MCG/ACT Aerosol Solution 2 puffs as needed Inhalation every 6 hrs Not-Taking/PRN Ibuprofen 800 MG Tablet 1 tablet Orally Three times a day Medication List reviewed and reconciled with the patient * Allergies:?Sulfacetamide Sod iumErythrocinFurosemide: elevated bun and cryes[Allergies Verified] Objective: * Vitals:?Ht: 64, Wt: 180, BMI :30.89, BP:152/86, Repeat BP:120/68, Wt-k.65. * ???Past Orders: ???Lab:Complete Blood Count Auto Diff (Order Date - 10/18/2024) (Collection Date & Time - 10/18/2024 07:30 AM) ? Value Reference Range ?White Blood Count [...] Auto 0.000 0.0-0. 012 - X10*3/uL ???Lab:Comprehensive [place]. P humberto Fast (Order Date - 10/18/2024) (Collection Date & Time - 10/18/2024 07:30 AM) ? Value Reference Range ?Sodium 144 135-145 [...] mg/dL ?Calcium 9.0 8.4-10.2 - m g/dL ???Lab:Lipid Panel (Order Da te - 10/18/2024) (Collection Date & Time - 10/18/2024 07:30 AM) ? Value Reference Range ?Triglycerides 61 <150 - mg/dL ?Cholesterol 139 <200 - m g/dL ?LDL Cholesterol Calculated 69 <100 - mg/dL ?HDL Cholesterol 58 >40 - mg/dL ???Lab:Vitamin D 25-OH Total (Order Date - 10/18/2024) (Collection Date & Time - 10/18/2024 07:30 AM) ? Value Reference Range ?Vitamin D 25-OH Total 47.7 >30 - ng/mL ???Lab:UA ClnCatch+Micro w/r flx Cult (Order Date - 10/18/2024) (Collection Date & Time - 10/18/2024 07:30 AM) ? Value Reference Range ?Color Urine Yellow - ?Appearance Urine Clear - ?PH 6.0 5.0-9.0 - ?Glucose Urine UA Negative Neg ative - mg/dL ?Urine Blood Negative Negative - ?Specific [place] - Urine 1.020 1.005-1.025 - ?Urine Protein [...] ?Hyaline Casts Urine 0-2 0-2 - /LPF * Examination: ???General Examination: ?GENERAL APPEARANCE:?alert, well hydrated, in no distress, female.?SKIN:?good turgor.?HEART:?regular rate and rhythm, no murmurs, rubs, gallops.?LUNGS:?no wheezes, rales, rhonchi, clear to auscultation bilaterally.?ABDOMEN:?abnormal with soft mass in rt lower quadrant about 5 inches. non tender.? Assessment: * Assessment: 1.?Posttraumatic seroma - T7 9.2XXA (Primary)???2.?Essential hypertension - I10???3.?Elevated BUN - R79.9??? Plan: * Treatment: 2.?Essential hypertension? Continue Irbesartan-hydroCHLOROthiazide Tablet, 300-12.5 MG, 0.5 tab, Orally, Once a day.?? Notes: doiing well, will continue current regiment?? 3.?Elevated BUN? Notes: stable, will continue to monitor?? * Procedure Codes:? * * Sign off status: Completed true * Provider:?Christopher Hogan MD Date:?0 11/26/2024 Generated for Kaleigh will/Kami/eTransmitting on:?12/06/2024 01:20 PM EST History and Physical Notes * HPI (History of Present Illness) Category Sub-Category Detail Notes Category Not es Symptom(s) patient is a 74 yo female here for 4 week follow up visit, Examination Category Sub-Category Detail Notes Category Not es General Examination GENERAL APPEARANCE: alert, w ell hydrated, in no distress, female HEART: regular rate and rhy thm, no murmurs, rubs, gallops LUNGS: no wheezes, rales, r honchi, clear to auscultation bilaterally ABDOMEN: abnormal with soft m ass in rt lower quadrant about 5 inches. non tender SKIN: good turgor Consultation Request Notes Referral Date Referring Provider Referred Provider Not es 11/26/2024 Christopher Hogan Pasquale please e antonio and treat
--- OUTSIDE RECORDS SUMMARY | 2024-12-06 13:20 | XMS_ITS ---
Author Organization Christopher Hogan MD Address [address] [place] [phone] Care Team Providers Care Burrito Maker Name Role Phone Christopher Hogan Primary Care Provider [phone] Allergies Allergen (clinical drug ingredient) Drug/Non Drug [...] Lawrence 0 10/25/2024 10:32:38 AM > info faxed, Gita Lawrence 11/15/2024 07:30:15 AM > info mailed to patient Referral Priority Routine Referral Appointment Date 03/04/2025 REASON FOR VISIT annual visit Medications Medication [...] kg/m2 10/25/2024 weight is down 7 pounds [facility] e Encounters Encounter Location Date Provider Diagnosis Christopher Hogan MD [address] [place] [address] Drive [address] [place] [phone] 10/25/2024 Christopher Hogan Mild intermittent asthma with [...] mass (ICD-10 - R19.00) order faxed to [facility] dept . pending diagnostic testing 10/25/2024 [...] regiment Palpable abdominal mass order faxed to [facility] dept . pending diagnostic testing Vitamin D deficiency stable, will contin ue current regiment Colon cancer screening will get colonosc opy this year Depression screening negative screen Pending Test Test Name Order Date CT ABD & PELVIS WITH CONTRAST 10/25/2024 Referrals Referral Date Details 10/25/2024 10/25/2024, needs co lonoscopy, Edmundo Marquez Next Appt Details Follow Up: 4 Weeks, Reason: Provider Name:Christopher pal, 04/22/2025 07:45:00 AM, [address] [place] [address], [address], [place], [place], [phone], Provider Name:Christopher Carlton ier, 04/29/2025 09:00:00 AM, [address], [address], [place], [phone], Provider Name:Christopher Carlton ier, 10/28/2025 07:00:00 AM, [address], [address], [place], [phone], Provider Name:Christopher Carlton ier, 11/04/2025 08:30:00 AM, [address], [address], [place], [phone], Progress Notes * Christel CROSS CDOB: (74 yo F)Acc No.[id number]:10/25/2024 Progress Notes Patient:?Christel Cross C Provider:?Christopher Hogan MD :1950???Age:74 Y???Sex:Female D ate:10/25/2024 Address:[address] [place] [address] [facility] Subjective: * Chief Complaints: * ???Annual visit [...] Pets: none. no Travel outside of the [place]. * Medications:?TakingVitamin B 12 1000 MCG [...] mg/dL ?Urine Blood Negative Negative - ?Specific [place] - Urine 1.020 1.005-1.025 - ?Urine Protein [...] Auto 0.000 0.0-0. 012 - X10*3/uL ???Lab:Comprehensive [place]. P humberto Fast (Order Date - 10/18/2024) [...] PELVIS WITH CONTRAST Notes: order faxed to [facility] dept . pending diagnostic testing?? 6.?Vitamin D deficiency? Notes: stable, will continue current regiment?? 7.?Colon cancer screening? Notes: will get colonoscopy this year? Referral To:Edmundo Marquez??Gastroenterology ?Reason:needs colonoscopy 8.?Depression screening? Notes: negative screen?? * Procedure Codes:? * Follow Up:?4 Weeks * * Sign off status: Completed true * Provider:?Christopher Hogan MD Date:?0 10/25/2024 Generated for Kaleigh will/Kami/eTabdulazizsmitting on:?12/06/2024 01:20 PM EST History and Physical [...]
--- OUTSIDE RECORDS SUMMARY | 2024-12-06 13:20 | XMS_ITS ---
Author Organization Christopher Hogan MD Address [address] [place] [phone] Care Team Providers Care Editing Intern Name Role Phone Christopher Hogan Primary Care Provider REASON FOR VISIT auth for CT abd and pelvis Encounters Encounter Location Date Provider Diagnosis Christopher Hogan MD [address] [facility] [address] [place] [phone] 10/29/2024 Christopher Hogan Plan Of Treatment Next Appt Details Provider Name:Christopher pal, 04/22/2025 07:45:00 AM, [address] [place] [address], Suite [facility], [place], [place], [phone], Provider Name:Christopher pal, 04/29/2025 09:00:00 AM, [address] [place] [address], [address], [phone], Provider Name:Christopher pal, 10/28/2025 07:00:00 AM, [address] [place] [address], [address], [phone], Provider Name:Christopher Carlton kae, 11/04/2025 08:30:00 AM, [address], [address], [place], [phone], Progress Notes * Christel CROSS CDOB: (74 yo F)Acc No.[id number]:10/29/2024 Patient:?Christel Cross C :1950???Age:74 Y???Sex:Female Address:[address] [place] [address] [place] [address] * true * Date:? Generated for Kaleigh will/Kami/Lydiasmitting on:?12/06/2024 01:19 PM EST
== END 2024-12-06 11:58 | disposition home or self-care (01) ==
PROVIDERS: PCP Internal Medicine; Visit Provider Surgery
DX: T79.2XXA Traumatic secondary and recurrent hemorrhage and seroma, initial encounter (principal)
CPT/HCPCS: 10160; 99214

== ENCOUNTER → 2024-12-06 11:33 | Outpatient (BNVA) | payer BC, SELFPAY | PROVIDERS: PCP Internal Medicine; Visit Provider Surgery | DX: T79.2XXA Traumatic secondary and recurrent hemorrhage and seroma, initial encounter (principal) | CPT/HCPCS: 10160 ==

== ENCOUNTER 2025-03-23 07:26 | Outpatient (REF) | payer BC, SELFPAY ==
--- OUTSIDE RECORDS SUMMARY | 2025-03-23 07:28 | XMS_ITS ---
Author Organization Christopher Hogan MD Address [address] [place] [phone] Care Team Providers Care Shoe Stainer Name Role Phone Christopher Hogan Primary Care Provider REASON FOR VISIT auth for CT abd and pelvis Encounters Encounter Location Date Provider Diagnosis Christopher Hogan MD 10 [facility] [address] [place] [phone] 10/29/2024 Christopher Hogan Plan Of Treatment Next Appt Details Provider Name:Christopher pal, 04/22/2025 07:45:00 AM, [address] [place] [address], Suite [facility], [place], [place], [phone], Provider Name:Christopher pal, 04/29/2025 09:00:00 AM, [address] [place] [address], [address], [phone], Provider Name:Christopher pal, 10/28/2025 07:00:00 AM, [address] [place] [address], [address], [phone], Provider Name:Christopher Carlton kae, 11/04/2025 08:30:00 AM, [address], [address], [place], [phone], Progress Notes * Christel CROSS CDOB: (74 yo F)Acc No.[id number]:10/29/2024 Patient:?Christel Cross C :1950???Age:74 Y???Sex:Female Address:[address] [place] [address] [place] [address] * true * Date:? Generated for Kaleigh will/Kami/eTabdulazizsmitting on:?03/23/2025 07:27 AM EDT
== END 2025-03-23 07:27 | disposition home or self-care (01) ==
LOC: HO.MAMMO 07:26
PROVIDERS: PCP Internal Medicine; Visit Provider Internal Medicine
DX: Z12.31 Encounter for screening mammogram for malignant neoplasm of breast (principal)
CPT/HCPCS: 77063; 77067

== ENCOUNTER → 2025-03-23 07:30 | Outpatient (BNV) | payer BC, SELFPAY | PROVIDERS: PCP Internal Medicine; Visit Provider Internal Medicine | DX: Z12.31 Encounter for screening mammogram for malignant neoplasm of breast (principal) | CPT/HCPCS: 77063; 77067 ==

== ENCOUNTER 2025-04-22 10:25 | Outpatient (REF) | payer BC, SELFPAY ==
--- OUTSIDE RECORDS SUMMARY | 2025-04-22 03:45 | XMS_ITS ---
Author Organization Christopher Hogan MD Address [address] [place] [phone] Care Team Providers Care Spray Painter Name Role Phone Christopher Hogan Primary Care Provider [phone] REASON FOR VISIT fasting lipids Encounters Encounter Location Date Provider Diagnosis Christopher Hogan MD [address] [place] [phone] 04/22/2025 Christopher Hogan Atherosclerosis of aorta I70.0 Assessments Encounter Date Diagnosis (ICD Code) Assessment Notes Treatment Notes Treatment Clinical Notes Section Notes 04/22/2025 Atherosclerosis of aorta (ICD-10 - I70.0) Plan Of Treatment Pending Test Test Name Order Date Liver Panel 04/22/2025 Lipid Panel with Reflex 04/22/2025 Next Appt Details Provider Name:Christopher pal, 04/29/2025 09:00:00 AM, [address], [address], [place], [place], [phone], Provider Name:Christopher pal, 10/28/2025 07:00:00 AM, [address], [address], [place], [place], [phone], Provider Name:Christopher Carlton ier, 11/04/2025 08:30:00 AM, [address], [address], [place], [place], [phone], Progress Notes * Christel RCOSS CDOB: (75 yo F)Acc No.[id number]:04/22/2025 Progress Note Patient: Christel CABRERA Provider: Jazmin Hogan MD :1950 A ge:75 Y S ex:Female Date:04/22/2025 Address:[address] [place] [address] [facility] Subjective: * Chief Complaints: * 1 . Fasting lipids. * Medical History: Objective: * Vitals: Assessment: * Assessment: 1. A therosclerosis of aorta - I70.0 (Primary) Plan: * Treatment: * Procedure Codes: 3 6415 VENIPUNCT, ROUTINE* * * The named appointment provid er may or may not be the originator of this progress note, and it is not deemed complete until electronically signed by the appointment provider. Sign off status: Pending * Provider: Jazmin Hogan MD Date: 04/22/2025 Generated for Kaleigh will/Kami/Jatinderitting on: 04/22/2025 10:55 AM EDT
--- OUTSIDE RECORDS SUMMARY | 2025-04-22 10:55 | XMS_ITS | Patient Health Record ---
Author Organization [facility] Address [address] [place] [address] Care Team Providers Care Derrick Helper Name Role Phone Christopher Hogan MD Primary Care Provider Edmundo Nagy Unavailable [phone] Allergies Allergen (clinical drug ingredient) Drug/Non Drug Allergy documented on EMR Reaction Allergy Type Onset Date Status erythromycin Erythromycin Unknown Drug Allergy A ctive Substance with sulfonamide structure and antibacterial mechanism of action (substance) Sulfa Antibiotics Unknown Drug Allergy Active Reason For Referral No Information Medications Medication SIG (Take, Route, Frequency, Duration) Notes Start Date End Date Status Omeprazole 20 MG 1 capsule 1/2 to 1 h our before morning meal Orally Once a day for 30 day(s) 03/04/2025 Active Vitamin D-3 25 MCG (1000 UT) 1 capsule Orally Once a day Active Vitamin B-12 100 MCG as directed Orally Active Atorvastatin Calcium 40 MG 1 tablet Oral ly Once a day for 30 day(s) 03/04/2025 Active Irbesartan 75 MG 2 tablets Orally Onc e a day for 30 day(s) 03/04/2025 Active Doxazosin Mesylate 1 MG 1 tablet Orally Once a day for 30 day(s) 03/04/2025 Active Doxycycline Calcium 03/04/2025 Active Immunizations Vaccine Route Administration Date Status Comme nts Influenza Unknown 06/30/2024 Administered Social History Tobacco Use: Social History Observation Description Date Details (start date - stop date) Never Smoker NA - NA Tobacco Control (Standard) Question Answer Notes Tobacco use: Nonsmoker AUDIT-C (Standard) Question Answer Notes Did you have a drink containing alcohol in the p ast year? No Points 0 Interpretation Negative Problems Problem Type SNOMED Code ICD Code Onset Dates Problem Status W/U Status Risk Notes Problem Colon cancer screening (457941893) Colon cancer screening (Z12.11) Active confirmed Problem Gastroesophageal reflux disease (084752852) GERD (gastroesopha geal reflux disease) (K21.9) Active confirmed Vital Signs Temperature 97.3 degrees Fahrenheit 03/04/2025 Blood pressure diastolic 01 mm Hg 03/04/2025 Height 62 in 03/04/2025 Blood pressure systolic 001 mm Hg 03/04/2025 Weight 180.4 lbs 03/04/2025 BMI 32.99 kg/m2 03/04/2025 Procedures Procedure Date Ordered Date Performed Result Body Sit e COLONOSCOPY 03/04/2025 N/A Encounters Encounter Location Date Provider Diagnosis [facility] [address] [place] [address] 03/04/2025 Edmundo Baumann Colon cancer screening Z12.11 and GERD (gastroesophageal reflux disease) K21.9 Assessments Encounter Date Diagnosis (ICD Code) Assessment Notes Treatment Notes Treatment Clinical Notes Section Notes 03/04/2025 Colon cancer screening (ICD-10 - Z12.11) Overall, Terell appears well. She is not having any new or worrisome GI complaints. Given her last colonoscopy being well over 10 years ago and her good clinical appearance, I did recommend a colonoscopy for screening purposes. We did review the rationale for that in regard to colon cancer prevention. Full consent has been taken for this, including risks of bleeding and perforation. The procedure will be done with monitored anesthesia care. In regards to the chronic reflux this seems to be very stable on her daily dose of omeprazole. She is not having any worrisome symptoms in that regard to suggest a definitive need for an upper endoscopy. We did review performing an upper endoscopy on her on the same day as her colonoscopy to rule out things such as Short's esophagus or a hiatal hernia. However at this point she is inclined to hold off on that since she is feeling well in that regard. I advised her that I think that is reasonable since she is already 74 years old and does not have any other potential risk factors for esophageal cancer such as smoking or significant use of alcohol. I did advise her to certainly let me know if anything changes with worsening reflux or other symptoms such as dysphagia or anorexia. Terell was comfortable with this plan. Thank you again for allowing me to participate in Terell's care. I shall continue to keep you advised of her progress. 03/04/2025 GERD (gastroesophag eal reflux disease) (ICD-10 - K21.9) Continue omeprazole and call me if things worsen Overall, Terell appears well. She is not having any new or worrisome GI complaints. Given her last colonoscopy being well over 10 years ago and her good clinical appearance, I did recommend a colonoscopy for screening purposes. We did review the rationale for that in regard to colon cancer prevention. Full consent has been taken for this, including risks of bleeding and perforation. The procedure will be done with monitored anesthesia care. In regards to the chronic reflux this seems to be very stable on her daily dose of omeprazole. She is not having any worrisome symptoms in that regard to suggest a definitive need for an upper endoscopy. We did review performing an upper endoscopy on her on the same day as her colonoscopy to rule out things such as Short's esophagus or a hiatal hernia. However at this point she is inclined to hold off on that since she is feeling well in that regard. I advised her that I think that is reasonable since she is already 74 years old and does not have any other potential risk factors for esophageal cancer such as smoking or significant use of alcohol. I did advise her to certainly let me know if anything changes with worsening reflux or other symptoms such as dysphagia or anorexia. Terell was comfortable with this plan. Thank you again for allowing me to participate in Terell's care. I shall continue to keep you advised of her progress. Plan Of Treatment Pending Test Test Name Order Date COLONOSCOPY 03/04/2025 Next Appt Details Provider Name:Edmundo Ferreira Baumann , 06/03/2025 11:10:00 AM, [address] [place] [address], [address], [place], [phone], Insurance Providers Payer Name Payer Address Payer Phone Subscriber Number Group Number Insured Name Patient Relationship to Insured Coverage Start Date Coverage End Date [facility] [address] [place] [address] [id number] TERELL BECKWITH Self - patient is the insured Medical (General) History Medical History History ICD Code HTN Denies [place],DM,CVA,Lung disease,renal dise ase Lymphedema in LE's GERD Hypercholesterolemia Neg colon[place] [address] Balderas, neg Cologuard in 2021 Acne rosacea Gallstones seen on 10/2024 CT scan. These have been asymptomatic Surgical History Surgery Date(Month/Year) Right hip replacement 2015 Right inguinal hernia repair with subsequent hematoma requiring drainage and seroma formation s/p drainage x 2 2019 x 2 1973, 1977 Kidney surgery to repair after a fall at age 6 1955
[2025-04-22 11:18] LABS: Alanine Aminotransferase 23 U/L (0-31); Albumin Level 3.4 g/dL (3.5-5.0); Alkaline Phosphatase 98 U/L (39-117); Aspartate Amino Transferase 34 U/L (5-31); Cholesterol 131 mg/dL (<200); HDL Cholesterol 59 mg/dL (>40); Total Protein 5.6 g/dL (6.5-8.0); Triglycerides 52 mg/dL (<150)
[2025-04-22 12:49] LABS: Reflex LDLD? No
== END 2025-04-22 10:26 | disposition home or self-care (01) ==
LOC: HO.LNP 10:25
PROVIDERS: Visit Provider Internal Medicine
DX: I70.0 Atherosclerosis of aorta (principal)
CPT/HCPCS: 80061; 80076

== ENCOUNTER 2025-06-03 10:22 | Day surgery (SDC) | payer BC, SELFPAY ==
--- OUTSIDE RECORDS SUMMARY | 2024-10-29 06:28 | XMS_ITS ---
Author Organization Christopher Hogan MD Address [address] [place] [phone] Care Team Providers Care Grain Operator Name Role Phone Christopher Hogan Primary Care Provider [phone] REASON FOR VISIT auth for CT abd and pelvis Encounters Encounter Location Date Provider Diagnosis Christopher Hogan MD [facility] [address] [place] [phone] 10/29/2024 Christopher Hogan Plan Of Treatment Next Appt Details Provider Name:Christopher pal, 04/22/2025 07:45:00 AM, [address] [place] [address], Suite [facility], [place], [place], [phone], Provider Name:Christopher pal, 04/29/2025 09:00:00 AM, [address] [place] [address], [address], [phone], Provider Name:Christopher pal, 10/28/2025 07:00:00 AM, [address] [place] [address], [address], [phone], Provider Name:Christopher Carlton kae, 11/04/2025 08:30:00 AM, [address], [address], [place], [phone], Progress Notes * Christel CROSS CDOB: (74 yo F)Acc No.[id number]:10/29/2024 Patient: Christel Cartwright :1950 A ge:74 Y S ex:Female [address]:[address] [place], [place] [address] [id number] * true * Date: Generated for Kaleigh will/Kami/Lydiasmitting on: 0 04/08/2025 09:13 AM EDT
[2025-06-01 13:42] VITALS: BMI 33.0
--- NOTE | 2025-06-02 12:07 | HO.ANESPROP2 ---
Documented by User: Leeann López NP 06/02/25 12:08 HPI - Anesthesia Eval Consult details Narrative: 75yo F for Colonoscopy PMFSH Active Problems Active Problems: All Active Problems Seroma due to trauma (Acute) Screening for colon cancer (Acute) Asthma (Acute) Morbid obesity due to excess calories (Acute) Past Medical History Medical History Rosacea Hypercholesteremia GERD (gastroesophageal reflux disease) Lymphedema of lower extremity Asthma Morbid obesity due to excess calories HTN (hypertension) Skin cancer (melanoma) Family History Family History Mother No problems noted. Surgical History Surgical History H/O colonoscopy History of right hip replacement H/O wrist surgery H/O: History of kidney surgery H/O hernia repair Social History Social History Household Members: Spouse Alcohol intake: never Patient Tobacco Use Status: Never used Tobacco Use of substances other than those prescribed or required for medical reasons: No Are you DNR?: No Advance Directives: No Advance Directives Information Provided: Yes Meds Allergies Allergy/AdvReac Type Severity Reaction Status Date / Time adhesive tape (ADHESIVE TAPE) Allergy Severe Severe Verified 06/03/25 10:32 Itching Sulfa (Sulfonamide Allergy Severe Anaphylaxis Verified 06/03/25 10:32 Antibiotics) (SULFA (SULFONAMIDE ANTIBIOTICS)) erythromycin base AdvReac Intermediate Vomiting Verified 06/03/25 10:32 Home Medications ?Medication ?Instructions ?Recorded ?Confirmed ?Last Taken ?Type atorvastatin 40 mg tablet 40 mg PO DAILY 06/01/25 06/01/25 Unknown History doxazosin 1 mg tablet 1 mg PO DAILY 06/01/25 06/03/25 Unknown History doxycycline hyclate 50 mg capsule 50 mg PO DAILY 06/01/25 06/01/25 Unknown History omeprazole 20 mg capsule,delayed 20 mg PO DAILY 06/01/25 06/01/25 Unknown History release albuterol sulfate 90 mcg/actuation 2 puff inhalation Q4-6H PRN 06/03/25 06/03/25 Unknown History aerosol inhaler Shortness Of Breath Or Wheezing irbesartan 150 1 tab PO DAILY 06/03/25 06/03/25 06/03/25 07:30 History mg-hydrochlorothiazide 12.5 mg tablet multivitamin 1 tab PO DAILY 06/03/25 06/03/25 Unknown History Exam Height,Weight and Vital Signs: Height 5 ft 2 in Weight 81.828 kg Assessment and Plan Assessment Anesthesia Assessment: Chart Reviewed Documented by User: Rehana Rose MD 06/03/25 11:39 PMFSH Past Medical History Medical History Rosacea Hypercholesteremia GERD (gastroesophageal reflux disease) Lymphedema of lower extremity Asthma Morbid obesity due to excess calories HTN (hypertension) Skin cancer (melanoma) Family History Family History Mother No problems noted. Family history of problems with anesthesia: No Surgical History Surgical History H/O colonoscopy History of right hip replacement H/O wrist surgery H/O: History of kidney surgery H/O hernia repair History of Problems with Anesthesia: No Social History Social History Household Members: Spouse Alcohol intake: never Patient Tobacco Use Status: Never used Tobacco Use of substances other than those prescribed or required for medical reasons: No Are you DNR?: No Advance Directives: No Advance Directives Information Provided: Yes Meds Allergies Allergy/AdvReac Type Severity Reaction Status Date / Time adhesive tape (ADHESIVE TAPE) Allergy Severe Severe Verified 06/03/25 10:32 Itching Sulfa (Sulfonamide Allergy Severe Anaphylaxis Verified 06/03/25 10:32 Antibiotics) (SULFA (SULFONAMIDE ANTIBIOTICS)) erythromycin base AdvReac Intermediate Vomiting Verified 06/03/25 10:32 Home Medications ?Medication ?Instructions ?Recorded ?Confirmed ?Last Taken ?Type atorvastatin 40 mg tablet 40 mg PO DAILY 06/01/25 06/01/25 Unknown History doxazosin 1 mg tablet 1 mg PO DAILY 06/01/25 06/03/25 Unknown History doxycycline hyclate 50 mg capsule 50 mg PO DAILY 06/01/25 06/01/25 Unknown History omeprazole 20 mg capsule,delayed 20 mg PO DAILY 06/01/25 06/01/25 Unknown History release albuterol sulfate 90 mcg/actuation 2 puff inhalation Q4-6H PRN 06/03/25 06/03/25 Unknown History aerosol inhaler Shortness Of Breath Or Wheezing irbesartan 150 1 tab PO DAILY 06/03/25 06/03/25 06/03/25 07:30 History mg-hydrochlorothiazide 12.5 mg tablet multivitamin 1 tab PO DAILY 06/03/25 06/03/25 Unknown History Exam Airway Mallampati Class: II TM Dist: >3cm Neck ROM: Limited Heart: rrr Lungs: cta Assessment and Plan Assessment Anesthesia Assessment: Anesthesia Plan Discussed Final Anesthetic Review Family History of Problems with Anesthesia: No History of Problems with Anesthesia: No NPO: Yes ASA Class: II Final Preanesthetic Review: No Changes in Pt Med Stat, Meds/Allgs Chart Reviewed, Consent Obtained/Reviewed and Anes Risks/Benef Reviewed Patient Risk: Low Procedure Risk: Low Anesthetic Plan Anesthetic Plan: MAC: Disposition: Standard PACU
[2025-06-03 10:37] VITALS: BMI 31.6
[2025-06-03 10:39] VITALS: BP 109/79; PULSE 81; RESP 15; TEMP 36.7; O2SAT 98
[2025-06-03] MEDS: Lactated Ringers 1,000 ML 100 ML IVCONT (10:52)
[2025-06-03 12:06] VITALS: BP 101/60; PULSE 80; RESP 16; TEMP 36.4; O2SAT 99
--- NOTE | 2025-06-03 12:14 | P.BOP_ITS ---
Brief Operative Note Date of Service: 06/03/25 Pre-op diagnosis: Screening Post-op diagnosis: other (Diverticulosis) Procedure: Colonoscopy to the cecum Surgeon: Edmundo Baumann MD Anesthesia: MAC Was an Junior Accountant Bookkeeper used for this Procedure?: No Estimated blood loss (mL): 0 Pathology: none sent Condition: stable Disposition: PACU
[2025-06-03 12:22] VITALS: BP 113/70; PULSE 70; RESP 18; TEMP 36.1; O2SAT 99
--- NOTE | 2025-06-03 22:51 | OP_ITS ---
DATE OF SERVICE: 06/03/2025 SURGEON: Edmundo Baumann MD INDICATIONS: The patient presents for evaluation of colorectal cancer screening. Full consent has been obtained from her for this, including risks of bleeding and perforation. PREOPERATIVE DIAGNOSIS: Colorectal cancer screening. POSTOPERATIVE DIAGNOSIS: PROCEDURE PERFORMED: Colonoscopy to the cecum. ESTIMATED BLOOD LOSS: COMPLICATIONS: ANESTHESIA: Medications used, monitored anesthesia care. ASSISTANTS: SPECIMENS: POSTOPERATIVE DIAGNOSES: Colorectal cancer screening, diverticulosis, and internal hemorrhoids. DESCRIPTION OF PROCEDURE: The patient was placed in the left lateral decubitus position. The digital rectal exam revealed no abnormalities. The Olympus video pediatric colonoscope was entered into the rectum and advanced easily to the cecum. Once in the cecum, I did identify normal-appearing cecal pouch with appendiceal orifice and a normal-appearing ileocecal valve. The entire cecum and ileocecal valve appeared normal. The scope was slowly withdrawn assessing all mucosal surfaces carefully. Preparation was excellent. I did not visualize any sign of polyps, colitis, nor angiodysplasia. There was a mild amount of sigmoid diverticulosis. In the rectum, scope was retroflexed visualizing internal hemorrhoids, but no other pathology. The rectal mucosa appeared normal. Scope was straightened and withdrawn from the patient. She tolerated the procedure well, and was returned to the recovery area in stable condition. IMPRESSION: 1. Diverticulosis. 2. Internal hemorrhoids. PLAN: Given her age and today's negative exam, I do not think she would need any further screening colonoscopies. She will otherwise see me on a p.r.n. basis. This has been discussed with her . MD GÓMEZ Akbar/JOVITAL / [id number]
== END 2025-06-03 12:41 | disposition home or self-care (01) ==
PROVIDERS: PCP Internal Medicine; Visit Provider Internal Medicine
PROC: 0DJD8ZZ Inspection of Lower Intestinal Tract, Via Natural or Artificial Opening Endoscopic (ICD-10-PCS; CPT 45378; principal; 2025-06-03 11:20)
DX: Z12.11 Encounter for screening for malignant neoplasm of colon (principal); K57.30 Diverticulosis of large intestine without perforation or abscess without bleeding; K64.8 Other hemorrhoids; K21.9 Gastro-esophageal reflux disease without esophagitis; K80.20 Calculus of gallbladder without cholecystitis without obstruction; I10 Essential (primary) hypertension; I89.0 Lymphedema, not elsewhere classified; E78.00 Pure hypercholesterolemia, unspecified; L71.9 Rosacea, unspecified; Z79.899 Other long term (current) drug therapy; Z88.2 Allergy status to sulfonamides; Z88.1 Allergy status to other antibiotic agents; Z98.890 Other specified postprocedural states
CPT/HCPCS: 45378; J2704